=== PATIENT | female | born 1975 | race Hispanic/Latino ===

== ENCOUNTER 2017-09-26 14:05 | Observation (INO) | payer OTHER ==
[2017-09-26 15:44] LABS: Alanine Aminotransferase 13 units/L (7-56); Albumin 3.8 g/dL (3.9-5); BUN/Creatinine Ratio 17; Blood Urea Nitrogen 10 mg/dL (7-17); Calcium 8.9 mg/dL (8.4-10.2); Hemolysis Index 0
[2017-09-26 16:09] LABS: Basophils % (Auto) 0.2 % (0.0-1.8); Eosinophils # (Auto) 0.2 K/mm3 (0.0-0.4); Eosinophils % (Auto) 2.6 % (0.0-4.3); Hematocrit 32.9 % (30.3-42.9); Hemoglobin 10.7 gm/dl (10.1-14.3); Lymphocytes # (Auto) 2.4 K/mm3 (1.2-5.4); Lymphocytes % (Auto) 31.5 % (13.4-35.0); Mean Corpuscular HGB Conc 33 % (30-34); Mean Corpuscular Hemoglobin 26 pg (28-32); Mean Corpuscular Volume 80 fl (79-97); Monocytes # (Auto) 0.6 K/mm3 (0.0-0.8); Monocytes % (Auto) 8.3 % (0.0-7.3); Red Blood Count 4.11 M/mm3 (3.65-5.03)
[2017-09-26 16:28] LABS: Red Cell Distribution Width 24.2 % (13.2-15.2)
[2017-09-26 17:05] LABS: Platelet Count 8 K/mm3 (140-440)
--- NOTE | 2017-09-26 19:44 | Emergency Department Report ---
ED Recheck HPI - General Chief Complaint: Recheck/Abnormal Lab/Rx Stated Complaint: BLOOD PLATELETS ARE HIGH Time Seen by Provider: 09/26/17 18:58 Source: patient Mode of arrival: Ambulatory Limitations: Language Barrier - History of Present Illness Initial Comments: Patient was told to go to the emergency room for evaluation of low platelet count. She denies any bleeding however complained of mild headache. 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 MD Complaint: abnormal lab -: Sudden Initial Visit For: other (thrombocytopenia) Returns Today for: other Context: called for abnorm lab res Associated Symptoms: other (headache) - Related Data Home Medications Medication Instructions Recorded Confirmed Last Taken Darunavir [Prezista] 800 mg PO QDAY 12/31/12 01/31/13 02/06/13 Emtricitabin/Tenofovir [TRUVADA 1 tab PO QDAY 12/31/12 01/31/13 02/06/13 200-300 mg] Ritonavir [Norvir] 100 mg PO QDAY 12/31/12 01/31/13 02/06/13 Methyldopa [Aldomet] 250 mg PO BID 01/09/13 01/31/13 02/06/13 Pnv,Calcium 72/Iron,Carb/Folic 01/09/13 01/31/13 02/06/13 [ Plus Iron Tablet] Previous Rx's Medication Instructions Recorded Last Taken Type Ondansetron [Zofran TAB] 4 mg PO Q6HR PRN #15 tablet 01/01/13 01/08/13 20:00 Rx Doxycycline [Vibramycin CAP] 100 mg PO BID #14 capsule 02/08/13 Unknown Rx Methylergonovine [Methergine] 0.2 mg PO Q8HR #6 tablet 02/08/13 Unknown Rx NIFEdipine XL [Procardia Xl] 60 mg PO Q12HR #60 tablet 11/18/16 Unknown Rx Ritonavir [Norvir] 100 mg PO QDAY #1 tab 11/18/16 Unknown Rx predniSONE [Deltasone] 30 mg PO QDAY #90 tablet 11/18/16 Unknown Rx Allergies Allergy/AdvReac Type Severity Reaction Status Date / Time No Known Allergies Allergy Verified 01/09/13 08:44 ED Review of Systems ROS: Stated complaint: BLOOD PLATELETS ARE HIGH Other details as noted in HPI Comment: All other systems reviewed and negative Constitutional: no symptoms reported ENT: denies: ear pain, dental pain Respiratory: denies: cough, shortness of breath Cardiovascular: denies: chest pain, palpitations Endocrine: no symptoms reported Gastrointestinal: denies: abdominal pain, nausea, vomiting, diarrhea, constipation Genitourinary: denies: urgency, frequency Musculoskeletal: denies: back pain, joint swelling Skin: denies: rash Neurological: denies: headache, numbness Psychiatric: denies: anxiety, depression Hematological/Lymphatic: denies: easy bleeding, easy bruising ED Past Medical Hx - Past Medical History Hx Hypertension: Yes (LAST BP TAKEN 02/05/13) Hx Renal Disease: No Hx Asthma: Yes (last inhaler use 6 months ago) Hx HIV: Yes - Surgical History Hx Appendectomy: Yes - Social History Smoking Status: Never Smoker Substance Use Type: None - Medications Home Medications: Home Medications Medication Instructions Recorded Confirmed Last Taken Type Darunavir [Prezista] 800 mg PO QDAY 12/31/12 01/31/13 02/06/13 History Emtricitabin/Tenofovir [TRUVADA 1 tab PO QDAY 12/31/12 01/31/13 02/06/13 History 200-300 mg] Ritonavir [Norvir] 100 mg PO QDAY 12/31/12 01/31/13 02/06/13 History Ondansetron [Zofran TAB] 4 mg PO Q6HR PRN #15 tablet 01/01/13 01/09/13 01/08/13 20:00 Rx Methyldopa [Aldomet] 250 mg PO BID 01/09/13 01/31/13 02/06/13 History Pnv,Calcium 72/Iron,Carb/Folic 01/09/13 01/31/13 02/06/13 History [ Plus Iron Tablet] Doxycycline [Vibramycin CAP] 100 mg PO BID #14 capsule 02/08/13 Unknown Rx Methylergonovine [Methergine] 0.2 mg PO Q8HR #6 tablet 02/08/13 Unknown Rx NIFEdipine XL [Procardia Xl] 60 mg PO Q12HR #60 tablet 11/18/16 Unknown Rx Ritonavir [Norvir] 100 mg PO QDAY #1 tab 11/18/16 Unknown Rx predniSONE [Deltasone] 30 mg PO QDAY #90 tablet 11/18/16 Unknown Rx ED Physical Exam - General Limitations: Language Barrier General appearance: alert, in no apparent distress - Head Head exam: Present: atraumatic, normocephalic, normal inspection - Eye Eye exam: Present: normal appearance, PERRL, EOMI Pupils: Present: normal accommodation - ENT ENT exam: Present: normal exam, normal orophraynx, mucous membranes moist - Neck Neck exam: Present: normal inspection, full ROM - Respiratory Respiratory exam: Present: normal lung sounds bilaterally. Absent: respiratory distress, wheezes, rhonchi - Cardiovascular Cardiovascular Exam: Present: regular rate, normal rhythm, normal heart sounds - GI/Abdominal GI/Abdominal exam: Present: soft, normal bowel sounds. Absent: distended, tenderness, guarding, rebound - Rectal Rectal exam: Present: deferred - Extremities Exam Extremities exam: Present: normal inspection, full ROM, normal capillary refill - Back Exam Back exam: Present: normal inspection, full ROM - Neurological Exam Neurological exam: Present: alert, oriented X3, CN II-XII intact - Psychiatric Psychiatric exam: Present: normal affect, normal mood. Absent: depressed, anxious - Skin Skin exam: Present: warm, dry, intact, normal color ED Course Vital Signs 09/26/17 09/26/17 09/26/17 14:38 18:30 18:53 Temperature 97.9 F Pulse Rate 91 H 81 Respiratory 16 16 16 Rate Blood Pressure 134/77 Blood Pressure 132/70 [Left] O2 Sat by Pulse 97 99 99 Oximetry - Reevaluation(s) Reevaluation #1: 09/26/17 20:30 I consulted the towel folder oncologist on-call Dr Sosa. Patient will be admitted to the hospitalists for further evaluation and management. ED Recheck MDM - Medical Decision Making Thrombocytopenia Critical care attestation.: If time is entered above; I have spent that time in minutes in the direct care of this critically ill patient, excluding procedure time. ED Disposition Clinical Impression: Thrombocythemia Disposition: OP ADMIT IP TO THIS HOSP Is pt being admited?: Yes Does the pt Need Aspirin: No Condition: Stable Referrals: PRIMARY CARE, [Primary Care Provider] - 3-5 Days Time of Disposition: 20:31
[2017-09-26] MEDS ORDERED: NACL 0.9% 500 ML 500 ML IV ONE (19:48)
[2017-09-26] MEDS ORDERED: DECADRON 20 MG in NACL 0.9% 50 ML IV ONE (20:06)
[2017-09-26 20:56] LABS: INR 0.87 (0.87-1.13)
--- NOTE | 2017-09-26 21:48 | Consultation ---
History of Present Illness - Reason for Consult Consult date: 09/26/17 low plt/anemia. Requesting physician: ELIECER LA - History of Present Illness Thank you for this consult, patient seen, examined, records reviewed, case d/w patient, and with the ER Doc. Patient presented to the ED, with geralized ill feeling. Labe revealed severe low plt, w/o any sign of bleeding. PLT last was 29 ,000, and to day 8,000. She does not speak [place].very poor history.all info from old record. Suspect ITP, secondary to perhaps her HIV/aids.she also has hx of iron def, so she has multiple reason for her low plt.rec include to try steroids as long as no acute infection.If there is any trace of active bleeding , PLT transfusion should be given.CT of the head is also rec, since patient reported head ache.I doubt HIV/aids lymphoma at this time.will follow you. will also check iron level , and adjust accordingly. Medications and Allergies Allergies Allergy/AdvReac Type Severity Reaction Status Date / Time No Known Allergies Allergy Verified 01/09/13 08:44 Home Medications Medication Instructions Recorded Confirmed Last Taken Type Darunavir [Prezista] 800 mg PO QDAY 12/31/12 01/31/13 02/06/13 History Emtricitabin/Tenofovir [TRUVADA 1 tab PO QDAY 12/31/12 01/31/13 02/06/13 History 200-300 mg] Ritonavir [Norvir] 100 mg PO QDAY 12/31/12 01/31/13 02/06/13 History Ondansetron [Zofran TAB] 4 mg PO Q6HR PRN #15 tablet 01/01/13 01/09/13 01/08/13 20:00 Rx Methyldopa [Aldomet] 250 mg PO BID 01/09/13 01/31/13 02/06/13 History Pnv,Calcium 72/Iron,Carb/Folic 01/09/13 01/31/13 02/06/13 History [ Plus Iron Tablet] Doxycycline [Vibramycin CAP] 100 mg PO BID #14 capsule 02/08/13 Unknown Rx Methylergonovine [Methergine] 0.2 mg PO Q8HR #6 tablet 02/08/13 Unknown Rx NIFEdipine XL [Procardia Xl] 60 mg PO Q12HR #60 tablet 11/18/16 Unknown Rx Ritonavir [Norvir] 100 mg PO QDAY #1 tab 11/18/16 Unknown Rx predniSONE [Deltasone] 30 mg PO QDAY #90 tablet 11/18/16 Unknown Rx Review of Systems Breasts: deferred Exam - Constitutional Vitals: Temp Pulse Resp BP Pulse Ox 98.1 F 85 18 140/71 98 09/26/17 19:05 09/26/17 19:05 09/26/17 19:05 09/26/17 19:05 09/26/17 19:05 General appearance: Present: no acute distress, well-nourished - EENT Eyes: Present: PERRL ENT: hearing intact, clear oral mucosa - Neck Neck: Present: supple, normal ROM - Respiratory Respiratory effort: normal Respiratory: bilateral: CTA - Cardiovascular Heart Sounds: Present: S1 & S2. Absent: rub, click - Extremities Extremities: pulses symmetrical, No edema Peripheral Pulses: within normal limits - Abdominal General gastrointestinal: Present: soft, non-tender, non-distended, normal bowel sounds Female genitourinary: Present: deferred - Rectal Rectal Exam: deferred - Integumentary Integumentary: Present: clear, warm, dry - Musculoskeletal Musculoskeletal: gait normal, strength equal bilaterally - Psychiatric Psychiatric: appropriate mood/affect, intact judgment & insight - Neurologic Neurologic: CNII-XII intact, moves all extremities Results - Labs CBC & Chem 7: 09/26/17 15:55 09/26/17 14:48 Labs: Abnormal lab results 09/26/17 09/26/17 Range/Units 14:48 15:55 MCH 26 L (28-32) pg RDW 24.2 H (13.2-15.2) % Plt Count 8 L* (140-440) K/mm3 [place] % (Auto) 8.3 H (0.0-7.3) % Sodium 136 L (137-145) mmol/L Chloride 97.7 L (98-107) mmol/L Creatinine 0.6 L (0.7-1.2) mg/dL Glucose 112 H (65-100) mg/dL Total Protein 8.3 H (6.3-8.2) g/dL Albumin 3.8 L (3.9-5) g/dL Assessment and Plan - Patient Problems (1) HIV (human immunodeficiency virus infection) Current Visit: No Status: Acute Plan to address problem: supportive. (2) Thrombocytopenia Current Visit: Yes Status: Acute Plan to address problem: see notes. (3) HIV (human immunodeficiency virus infection) Current Visit: Yes Status: Acute Plan to address problem: see notes. (4) AIDS Current Visit: Yes Status: Acute Plan to address problem: see notes/orders. (5) Anemia Current Visit: Yes Status: Acute Plan to address problem: see notes/orders.
--- NOTE | 2017-09-26 21:49 | Cat Scan Report ---
FINAL REPORT PROCEDURE: CT HEAD/BRAIN WO CON TECHNIQUE: Computerized tomography of the head was performed without contrast material. HISTORY: Headache COMPARISON: September 15, 2016 FINDINGS: Skull and scalp: Normal. Paranasal sinuses: Normal. Ventricles and subarachnoid spaces: Normal. Cerebrum: No evidence of hemorrhage, acute infarction or mass . Cerebellum and brainstem: No evidence of hemorrhage, acute infarction or mass. Vasculature: Normal. Comments: None. IMPRESSION: Normal CT brain Sinusitis.
[2017-09-26 23:08] LABS: Iron 43 ug/dL (37-170)
[2017-09-26 23:09] LABS: Total Iron Binding Capacity 428 mcg/dL (250-450)
[2017-09-27] MEDS ORDERED: TYLENOL PO PRN (03:17)
[2017-09-27] MEDS ORDERED: ZOFRAN IV PRN (03:17)
[2017-09-27] MEDS ORDERED: SODIUM CHLORIDE FLUSH SYRINGE 10 ML IV PRN (03:17)
[2017-09-27] MEDS ORDERED: MORPHINE IV PRN (03:17)
--- NOTE | 2017-09-27 03:20 | History and Physical Report ---
History of Present Illness Date of examination: 09/27/17 Date of admission: 09/27/17 Chief complaint: Low plt History of present illness: 41 YO Female with AIDS, Asthma, Obesity who was sent from outpatient clinic for low platelet counts. On arrival the patient was noted to have a PLT level of 8, 000 WITH NO NOTED BLEED. She complained of headache but no associated blurry vision. she denies any change in medication recently and reports compliance to her chronic steroids. She has been seen at the facility for the same a year ago and at the time work up was negative with recommendation to follow with Hematology outpatient. She is also followed by ID FOR HIV and compliant with med. Past History Past Medical History: HIV/AIDS, hypertension, hyperlipidemia Past Surgical History: No surgical history, Other Social history: lives with family, full code Family history: no significant family history Medications and Allergies Allergies Allergy/AdvReac Type Severity Reaction Status Date / Time No Known Allergies Allergy Verified 01/09/13 08:44 Home Medications Medication Instructions Recorded Confirmed Last Taken Type Darunavir [Prezista] 800 mg PO QDAY 12/31/12 09/27/17 02/06/13 History Emtricitabin/Tenofovir [TRUVADA 1 tab PO QDAY 12/31/12 09/27/17 02/06/13 History 200-300 mg] Ritonavir [Norvir] 100 mg PO QDAY 12/31/12 09/27/17 02/06/13 History Ondansetron [Zofran TAB] 4 mg PO Q6HR PRN #15 tablet 01/01/13 09/27/17 01/08/13 20:00 Rx Methyldopa [Aldomet] 250 mg PO BID 01/09/13 09/27/17 02/06/13 History Pnv,Calcium 72/Iron,Carb/Folic 1 tab PO DAILY 01/09/13 09/27/17 02/06/13 History [ Plus Iron Tablet] Doxycycline [Vibramycin CAP] 100 mg PO BID #14 capsule 02/08/13 09/27/17 Unknown Rx Methylergonovine [Methergine] 0.2 mg PO Q8HR #6 tablet 02/08/13 09/27/17 Unknown Rx Ritonavir [Norvir] 100 mg PO QDAY #1 tab 11/18/16 09/27/17 Unknown Rx predniSONE [Deltasone] 30 mg PO QDAY #90 tablet 11/18/16 09/27/17 Unknown Rx Labetalol [Normodyne TAB] 100 mg PO BID 09/27/17 09/27/17 09/27/17 09:00 History Active Meds: Active Medications Methylprednisolone Sodium Succinate (Solu-Medrol) 40 mg IV Q8HR [facility] Last Admin: 09/26/17 22:55 Dose: 40 mg Review of Systems ROS unobtainable: due to mental status Constitutional: fatigue, weakness Exam - Constitutional Vitals: Temp Pulse Resp BP Pulse Ox 98.1 F 85 18 127/71 98 09/26/17 19:05 09/26/17 19:05 09/26/17 19:05 09/27/17 00:03 09/27/17 00:03 General appearance: Present: no acute distress, well-nourished - EENT Eyes: Present: PERRL ENT: clear oral mucosa, dentition normal - Neck Neck: Present: supple, normal ROM - Respiratory Respiratory effort: normal Respiratory: bilateral: CTA - Cardiovascular Rhythm: regular Heart Sounds: Present: S1 & S2 - Extremities Extremities: no ischemia, pulses intact, pulses symmetrical, No edema, normal temperature, Full ROM Peripheral Pulses: within normal limits - Abdominal General gastrointestinal: Present: soft, non-tender, distended, normal bowel sounds - Integumentary Integumentary: Present: clear, warm, dry - Musculoskeletal Musculoskeletal: strength equal bilaterally - Psychiatric Psychiatric: appropriate mood/affect, cooperative - Neurologic Neurologic: CNII-XII intact, moves all extremities - Allied Health Allied health notes reviewed: nursing Results - Labs CBC & Chem 7: 09/27/17 09:36 09/26/17 14:48 Labs: Laboratory Last Values WBC 7.5 K/mm3 (4.5-11.0) 09/26/17 15:55 RBC 4.11 M/mm3 (3.65-5.03) 09/26/17 15:55 Hgb 10.7 gm/dl (10.1-14.3) 09/26/17 15:55 Hct 32.9 % (30.3-42.9) 09/26/17 15:55 MCV 80 fl (79-97) 09/26/17 15:55 MCH 26 pg (28-32) L 09/26/17 15:55 MCHC 33 % (30-34) 09/26/17 15:55 RDW 24.2 % (13.2-15.2) H 09/26/17 15:55 Plt Count 8 K/mm3 (140-440) L* 09/26/17 15:55 Lymph % (Auto) 31.5 % (13.4-35.0) 09/26/17 15:55 [place] % (Auto) 8.3 % (0.0-7.3) H 09/26/17 15:55 Eos % (Auto) 2.6 % (0.0-4.3) 09/26/17 15:55 Baso % (Auto) 0.2 % (0.0-1.8) 09/26/17 15:55 Lymph # 2.4 K/mm3 (1.2-5.4) 09/26/17 15:55 [place] # 0.6 K/mm3 (0.0-0.8) 09/26/17 15:55 Eos # 0.2 K/mm3 (0.0-0.4) 09/26/17 15:55 Baso # 0.0 K/mm3 (0.0-0.1) 09/26/17 15:55 Seg Neutrophils % 57.4 % (40.0-70.0) 09/26/17 15:55 Seg Neutrophils # 4.3 K/mm3 (1.8-7.7) 09/26/17 15:55 PT 12.3 Sec. (12.2-14.9) 09/26/17 20:16 INR 0.87 (0.87-1.13) 09/26/17 20:16 APTT 27.0 Sec. (24.2-36.6) 09/26/17 20:16 Sodium 136 mmol/L (137-145) L 09/26/17 14:48 Potassium 3.9 mmol/L (3.6-5.0) 09/26/17 14:48 Chloride 97.7 mmol/L (98-107) L 09/26/17 14:48 Carbon Dioxide 25 mmol/L (22-30) 09/26/17 14:48 Anion Gap 17 mmol/L 09/26/17 14:48 BUN 10 mg/dL (7-17) 09/26/17 14:48 Creatinine 0.6 mg/dL (0.7-1.2) L 09/26/17 14:48 Estimated GFR > 60 ml/min 09/26/17 14:48 BUN/Creatinine Ratio 17 % 09/26/17 14:48 Glucose 112 mg/dL (65-100) H 09/26/17 14:48 Calcium 8.9 mg/dL (8.4-10.2) 09/26/17 14:48 Iron 43 ug/dL (37-170) 09/26/17 21:57 TIBC 428 mcg/dL (250-450) 09/26/17 21:57 Ferritin 37.8 ng/mL (13.0-400.0) 09/26/17 21:57 Total Bilirubin 0.20 mg/dL (0.1-1.2) 09/26/17 14:48 AST 21 units/L (5-40) 09/26/17 14:48 ALT 13 units/L (7-56) 09/26/17 14:48 Alkaline Phosphatase 65 units/L (35-129) 09/26/17 14:48 Lactate Dehydrogenase 241 units/L (91-180) H 09/26/17 21:55 Total Protein 8.3 g/dL (6.3-8.2) H 09/26/17 14:48 Albumin 3.8 g/dL (3.9-5) L 09/26/17 14:48 Albumin/Globulin Ratio 0.8 % 09/26/17 14:48 Blood Type O POSITIVE 09/26/17 14:48 Antibody Screen Negative 09/26/17 14:48 - Imaging and Cardiology CT Scan - head: image reviewed (sinusities) Assessment and Plan Assessment and plan: 41 YO Female with AIDS, Asthma, Obesity who was sent from outpatient clinic for low platelet counts. On arrival the aptient was noted to have a PLT level of 8, 000 WITH NO NOTED BLEED. She complained of headache but no associated blurry vision. she denies any change in medication recently and reports compliance to her chronic steroids. she has been seen at the facility for the same a year ago and at the time work up was negative with recommendation to follow with Hematology outpatient. Severe thrombocytopenia Immune thrombocytopenia, ITP HIV/AIDS Iron deficiency anemia IUP~ Plan * Admit to [facility] * Platelet transfusion order * Hematology consult already done * Check beta HCG * ID consult for med management considering * ABDOMINAL Ultrasound, * [employer] OPERATOR consult * Resume home meds * CT head to eval for bleed- already done by the time I came. * compliance reinforced * DVT prophy with SCD * Plan of care discussed with patient extensively Advance Directives: Yes Plan of care discussed with patient/family: Yes
[2017-09-27] MEDS ORDERED: METHERGINE PO SCH (06:00)
[2017-09-27 06:02] LABS: Basophils % (Auto) 0.1 % (0.0-1.8); Eosinophils % (Auto) 0.1 % (0.0-4.3); Hematocrit 33.2 % (30.3-42.9); Lymphocytes # (Auto) 1.4 K/mm3 (1.2-5.4); Lymphocytes % (Auto) 18.4 % (13.4-35.0); Mean Corpuscular HGB Conc 33 % (30-34); Mean Corpuscular Hemoglobin 28 pg (28-32); Mean Corpuscular Volume 84 fl (79-97); Monocytes # (Auto) 0.2 K/mm3 (0.0-0.8); Monocytes % (Auto) 2.1 % (0.0-7.3); Red Blood Count 3.95 M/mm3 (3.65-5.03)
[2017-09-27 06:09] LABS: Red Cell Distribution Width 23.9 % (13.2-15.2)
[2017-09-27 06:12] LABS: Platelet Count 7 K/mm3 (140-440)
[2017-09-27] MEDS ORDERED: NON-FORMULARY (Emtricitabin/Tenofovir [Truvada 200-300 Mg] 1 TAB) PO SCH (10:00)
[2017-09-27] MEDS ORDERED: VIREAD PO SCH (10:00)
[2017-09-27] MEDS ORDERED: EMTRIVA PO SCH (10:00)
[2017-09-27] MEDS ORDERED: NORVIR PO SCH (10:00)
[2017-09-27] MEDS ORDERED: PREZISTA PO SCH ×2 (10:00→12:00)
[2017-09-27] MEDS ORDERED: PROCARDIA XL PO SCH (10:00)
[2017-09-27 10:03] LABS: Basophils % (Auto) 0.4 % (0.0-1.8); Eosinophils % (Auto) 0.3 % (0.0-4.3); Hematocrit 33.8 % (30.3-42.9); Hemoglobin 11.4 gm/dl (10.1-14.3); Lymphocytes # (Auto) 1.5 K/mm3 (1.2-5.4); Lymphocytes % (Auto) 15.9 % (13.4-35.0); Mean Corpuscular HGB Conc 34 % (30-34); Mean Corpuscular Hemoglobin 28 pg (28-32); Mean Corpuscular Volume 82 fl (79-97); Monocytes # (Auto) 0.1 K/mm3 (0.0-0.8); Monocytes % (Auto) 1.4 % (0.0-7.3); Red Blood Count 4.14 M/mm3 (3.65-5.03); Red Cell Distribution Width 23.5 % (13.2-15.2)
[2017-09-27 10:04] LABS: Platelet Count 24 K/mm3 (140-440)
--- NOTE | 2017-09-27 11:12 | Consultation ---
History of Present Illness - Reason for Consult Consult date: 09/27/17 HIV, Requesting physician: HILTON PASTRANA - History of Present Illness 42 y/o female with history of severe asthma, previous cryptosporidiosis, previous immune thrombocytopenia (in Nov 2016 seen by hematology, she received IV steroids and platelets counts improved), HIV for several years, follows with Dr Tello, stopped ART 4 weeks ago when she found out she was (she was on prezista, descovy and tivicay); admitted on 09/26/17 from HIV outpatient clinic for low platelet counts. She reports she has been feeling weak and low grade subjective fever last 4 weeks. She has a mild dry cough and mild diffuse headache. Denies any sick contact. Per Dr Tello she has been non complaint in the past. Denies N/V/D, any bleeding. In the ED, temp 97.9, HR 91, R 16, BP 134/77. WBC 7.5. Hg 10.7. Plat 8. Creat 0.6. LDH 241. HCG 22K. CT head showed sinusitis. US showed single viable IU 6 w, 2 d. Microbiology: none Current Antimicrobials: none Previous Antimicrobials: Past History Past Medical History: HIV/AIDS, hypertension, hyperlipidemia Past Surgical History: No surgical history, Other Social history: lives with family, full code Family history: no significant family history Medications and Allergies Allergies Allergy/AdvReac Type Severity Reaction Status Date / Time No Known Allergies Allergy Verified 01/09/13 08:44 Home Medications Medication Instructions Recorded Confirmed Last Taken Type Darunavir [Prezista] 800 mg PO QDAY 12/31/12 09/27/17 02/06/13 History Emtricitabin/Tenofovir [TRUVADA 1 tab PO QDAY 12/31/12 09/27/17 02/06/13 History 200-300 mg] Ritonavir [Norvir] 100 mg PO QDAY 12/31/12 09/27/17 02/06/13 History Ondansetron [Zofran TAB] 4 mg PO Q6HR PRN #15 tablet 01/01/13 09/27/17 01/08/13 20:00 Rx Methyldopa [Aldomet] 250 mg PO BID 01/09/13 09/27/17 02/06/13 History Pnv,Calcium 72/Iron,Carb/Folic 1 tab PO DAILY 01/09/13 09/27/17 02/06/13 History [ Plus Iron Tablet] Doxycycline [Vibramycin CAP] 100 mg PO BID #14 capsule 02/08/13 09/27/17 Unknown Rx Methylergonovine [Methergine] 0.2 mg PO Q8HR #6 tablet 02/08/13 09/27/17 Unknown Rx Ritonavir [Norvir] 100 mg PO QDAY #1 tab 11/18/16 09/27/17 Unknown Rx predniSONE [Deltasone] 30 mg PO QDAY #90 tablet 11/18/16 09/27/17 Unknown Rx Labetalol [Normodyne TAB] 100 mg PO BID 09/27/17 09/27/17 09/27/17 09:00 History Active Meds: Active Medications Acetaminophen (Tylenol) 650 mg PO Q4H PRN PRN Reason: Pain MILD(1-3)/Fever >100.5/REBOLLAR Darunavir (Prezista) 800 mg PO QDAY [facility] Famotidine (Pepcid) 20 mg PO BID [facility] Methyldopa (Aldomet) 250 mg PO BID ON LICENSE OF [facility] Methylprednisolone Sodium Succinate (Solu-Medrol) 40 mg IV Q8HR ON LICENSE OF [facility] Last Admin: 09/27/17 05:57 Dose: 40 mg Morphine Sulfate (Morphine) 2 mg IV Q4H PRN PRN Reason: Pain, Moderate (4-6) Ondansetron HCl (Zofran) 4 mg IV Q8H PRN PRN Reason: Nausea And Vomiting Raltegravir (Isentress) 400 mg PO BID ON LICENSE OF [facility] Sodium Chloride (Sodium Chloride Flush Syringe 10 Ml) 10 ml IV BID [facility] Sodium Chloride (Sodium Chloride Flush Syringe 10 Ml) 10 ml IV PRN PRN PRN Reason: LINE FLUSH Review of Systems ROS unobtainable: due to mental status All systems: negative (as per HPI) Physical Examination - Physical Exam Narrative exam: General appearance: Alert in NAD, conversant Eyes: anicteric sclerae, moist conjunctivae; no lid-lag; PERRLA HENT: Atraumatic; oropharynx clear Neck: Trachea midline; supple, no thyromegaly or lymphadenopathy Lungs: CTA, with normal respiratory effort and no intercostal retractions CV: RRR, no murmurs Abdomen: Soft, non-tender; no masses or hepatosplenomegaly Extremities: No peripheral edema or extremity lymphadenopathy Skin: old skin nodular rash Psych: Appropriate affect, alert and oriented to person, place and time. Neuro: alert and oriented x 3. Moving all extermities Lines: No CVL / PICC - Constitutional Vitals: Vital Signs Temp Pulse Resp BP Pulse Ox 98.1 F 92 H 20 142/69 96 09/27/17 08:12 09/27/17 08:12 09/27/17 08:12 09/27/17 08:12 09/27/17 08:12 Temperature -Last 24 Hours Temperature 98.1 F Temperature 98.8 F Temperature 98.8 F Temperature 98.8 F Temperature 98.3 F Temperature 98.3 F Temperature 98.0 F Temperature 98.1 F Temperature 97.9 F Results - Labs CBC & Chem 7: 09/27/17 09:36 09/26/17 14:48 Labs: Abnormal lab results 09/26/17 09/26/17 09/26/17 Range/Units 14:48 15:55 21:55 MCH 26 L (28-32) pg RDW 24.2 H (13.2-15.2) % Plt Count 8 L* (140-440) K/mm3 [place] % (Auto) 8.3 H (0.0-7.3) % Seg Neutrophils % (40.0-70.0) % Sodium 136 L (137-145) mmol/L Chloride 97.7 L (98-107) mmol/L Creatinine 0.6 L (0.7-1.2) mg/dL Glucose 112 H (65-100) mg/dL Lactate Dehydrogenase 241 H (91-180) units/L Total Protein 8.3 H (6.3-8.2) g/dL Albumin 3.8 L (3.9-5) g/dL HCG, Quant (0-4) mIU/mL 09/27/17 09/27/17 09/27/17 Range/Units 05:27 05:27 09:36 MCH (28-32) pg RDW 23.9 H 23.5 H (13.2-15.2) % Plt Count 7 L* 24 L D (140-440) K/mm3 [place] % (Auto) (0.0-7.3) % Seg Neutrophils % 79.3 H 82.0 H (40.0-70.0) % Sodium (137-145) mmol/L Chloride (98-107) mmol/L Creatinine (0.7-1.2) mg/dL Glucose (65-100) mg/dL Lactate Dehydrogenase (91-180) units/L Total Protein (6.3-8.2) g/dL Albumin (3.9-5) g/dL HCG, Quant 34353 H (0-4) mIU/mL Assessment and Plan Assessment: 1) HIV disease: non compliant -follows with Dr Tello -stopped ART 4 weeks ago when she found out she was (she was on prezista, descovy and tivicay) -last ND4=502, KZ=042 on 11/16/16 2) - 6 weeks 2 days 3) Severe thrombocytopenia with previous immune thrombocytopenia (in Nov 2016 seen by hematology, she received IV steroids and platelets counts improved) 4) History of severe asthma 5) Previous cryptosporidiosis 6) recent fever and dry cough ? Plan: -start truvada 1 tab qday, prezista 600 mg qday, ritonavir 100 mg bid and raltegravir 400 mg bid -check CD4/VL/genotype -Hem consultation -check RPR, viral hepatitis -CXR -blood cx -cryptococcal serum antigen Thank you for your consultation, will follow up with you. Reina Pathak MD Infectious Diseases Specialist [facility] ([facility] M [phone] O [phone]
--- NOTE | 2017-09-27 11:44 | Ultrasound Report ---
ULTRASOUND OB LESS THAN 14 WEEKS FETUS History: Confirm intrauterine and EGA. Technique: Transabdominal ultrasound. Findings: The uterus measures 9.0 x 6.3 x 7.9 cm. An intrauterine gestational sac containing a small pole and yolk sac is identified. heart rate measures 119 beats per minute. Section-rump length measures 5.4 mm which correlates with a 6 week 2 day . Estimated due date is 05/21/18. No subchorionic hemorrhage is identified. The ovaries are not visualized secondary to overlying bowel gas. No pelvic cyst, mass or fluid collection is detected. IMPRESSION: Viable single intrauterine as described. No acute abnormality is detected on transabdominal imaging. The ovaries are obscured.
[2017-09-27] MEDS: ISENTRESS PO SCH ×2 (13:27→21:37)
[2017-09-27] MEDS: SODIUM CHLORIDE FLUSH SYRINGE 10 ML IV SCH (13:31)
[2017-09-27] MEDS: PEPCID PO SCH ×2 (13:34→21:37)
[2017-09-27] MEDS: ALDOMET PO SCH ×2 (14:21→21:36)
[2017-09-27] MEDS ORDERED: EMTRIVA 200 MG, VIREAD 300 MG PO SCH (15:00)
--- NOTE | 2017-09-27 17:13 | Consultation ---
History of Present Illness Consult date: 09/27/17 Reason for consult: other (thrombocytopenia with an intrauterine ) History of present illness: History obtained through the language line. Interpreters name Melinda #[id number] This is a 42-year-old female now 4 para 05/12/2001, her LMP was 2017. She is HIV positive. She presented to the ED from her clinic for evaluation of severe thrombocytopenia. She was found to have a positive test. Ultrasound revealed an intrauterine of 6 weeks and [address] her estimated date of delivery 05/21/2018. She states she found out she was last month stopped all of her medications at that time. Today she denies vaginal bleeding or uterine cramping or any obstetrical problems. Past History Past Medical History: asthma, hypertension, other (immune thrombocytopenia) Past Surgical History: appendectomy, D&C, other (LEEP ) [employer] History: abnormal PAP smear (patient required loop electrosurgical excision procedure august 2016. She states she had a Pap August 2017 however she does not know the results of that test.), HIV - Obstetrical History Expected Date of Delivery: 05/21/18 Actual Gestation: 6 Week(s) 2 Day(s) : 4 Para: 2 Hx # Term Pregnancies: 2 Number of Pregnancies: 0 Spontaneous Abortions: 1 Induced : 0 Number of Living Children: 2 #1 year: 1,994 Method of Delivery: Vaginal #2 year: 1,998 Method of Delivery: Vaginal #3 year: 2,013 (15 weeks SAB with D&C) Medications and Allergies Allergies Allergy/AdvReac Type Severity Reaction Status Date / Time No Known Allergies Allergy Verified 01/09/13 08:44 Home Medications Medication Instructions Recorded Confirmed Last Taken Type Darunavir [Prezista] 800 mg PO QDAY 12/31/12 09/27/17 02/06/13 History Emtricitabin/Tenofovir [TRUVADA 1 tab PO QDAY 12/31/12 09/27/17 02/06/13 History 200-300 mg] Ritonavir [Norvir] 100 mg PO QDAY 12/31/12 09/27/17 02/06/13 History Ondansetron [Zofran TAB] 4 mg PO Q6HR PRN #15 tablet 09/09/27/17 01/08/13 20:00 Rx Methyldopa [Aldomet] 250 mg PO BID 01/09/13 09/27/17 02/06/13 History Pnv,Calcium 72/Iron,Carb/Folic 1 tab PO DAILY 01/09/13 09/27/17 02/06/13 History [ Plus Iron Tablet] Doxycycline [Vibramycin CAP] 100 mg PO BID #14 capsule 02/08/13 09/27/17 Unknown Rx Methylergonovine [Methergine] 0.2 mg PO Q8HR #6 tablet 02/08/13 09/27/17 Unknown Rx Ritonavir [Norvir] 100 mg PO QDAY #1 tab 11/18/16 09/27/17 Unknown Rx predniSONE [Deltasone] 30 mg PO QDAY #90 tablet 11/18/16 09/27/17 Unknown Rx Labetalol [Normodyne TAB] 100 mg PO BID 09/27/17 09/27/17 09/27/17 09:00 History Vit Calc,Iron,Folic 1 each PO DAILY #30 tablet 09/27/17 Unknown Rx [ Vitamins] Active Meds: Active Medications Acetaminophen (Tylenol) 650 mg PO Q4H PRN PRN Reason: Pain MILD(1-3)/Fever >100.5/REBOLLAR Darunavir (Prezista) 600 mg PO BID [facility] Emtricitabine (Emtriva) 200 mg PO QDAY [facility] Famotidine (Pepcid) 20 mg PO BID [facility] Last Admin: 09/27/17 13:34 Dose: 20 mg Methyldopa (Aldomet) 250 mg PO BID [facility] Last Admin: 09/27/17 14:21 Dose: 250 mg Methylprednisolone Sodium Succinate (Solu-Medrol) 40 mg IV Q8HR [facility] Last Admin: 09/27/17 13:29 Dose: 40 mg Morphine Sulfate (Morphine) 2 mg IV Q4H PRN PRN Reason: Pain, Moderate (4-6) Ondansetron HCl (Zofran) 4 mg IV Q8H PRN PRN Reason: Nausea And Vomiting Raltegravir (Isentress) 400 mg PO BID [facility] Last Admin: 09/27/17 13:27 Dose: 400 mg Ritonavir (Norvir) 100 mg PO BID [facility] Sodium Chloride (Sodium Chloride Flush Syringe 10 Ml) 10 ml IV BID [facility] Last Admin: 09/27/17 13:31 Dose: 10 ml Sodium Chloride (Sodium Chloride Flush Syringe 10 Ml) 10 ml IV PRN PRN PRN Reason: LINE FLUSH Tenofovir Disoproxil Fumarate (Viread) 300 mg PO QDAY [facility] Review of Systems All systems: negative - Vital Signs Vital signs: Vital Signs Temp Pulse Resp BP Pulse Ox 97.9 F 91 H 16 134/77 97 09/26/17 14:38 09/26/17 14:38 09/26/17 14:38 09/26/17 14:38 09/26/17 14:38 Temp Pulse Resp BP Pulse Ox 97.5 F L 96 H 22 154/78 97 09/27/17 15:52 09/27/17 15:52 09/27/17 15:52 09/27/17 15:52 09/27/17 15:52 Results Result Diagrams: 09/27/17 09:36 09/26/17 14:48 Abnormal lab results 09/26/17 09/27/17 09/27/17 Range/Units 21:55 05:27 05:27 RDW 23.9 H (13.2-15.2) % Plt Count 7 L* (140-440) K/mm3 Seg Neutrophils % 79.3 H (40.0-70.0) % Lactate Dehydrogenase 241 H (91-180) units/L HCG, Quant 42363 H (0-4) mIU/mL 09/27/17 Range/Units 09:36 RDW 23.5 H (13.2-15.2) % Plt Count 24 L D (140-440) K/mm3 Seg Neutrophils % 82.0 H (40.0-70.0) % Lactate Dehydrogenase (91-180) units/L HCG, Quant (0-4) mIU/mL All other labs normal. Ultrasound: report reviewed, image reviewed Assessment and Plan Patient is a poor historian. Most history is obtained from previous visits here at [facility]. - Patient Problems (1) Current Visit: Yes Status: Acute Qualifiers: Weeks of gestation: less than 8 weeks Qualified Code(s): Z3A.01 - Less than 8 weeks gestation of Plan to address problem: 1. No obstetrical complaints at this time 2. Patient states she plans to deliver here at [facility] 3. She was informed she needs to establish her obstetric care immediately upon discharge with the provider in this area. It was emphasized to her with her multiple medical problems specifically HIV, advanced maternal age, asthma, thrombocytopenia, hypertension, and morbid obesity, she is high risk. Importance of HIV protocol for treatment and delivery of infant was emphasized , she was informed this is very important that she receives medication 3 hours prior to delivery to decrease the chances that this baby will require HIV. 4. She was informed she may continue seeing Dr. Tello who is her infection disease provider. She was also informed in this she will also see 2 additional providers, a general landscaping crew leader as well as a critical care clinical nurse specialist who will manage her hypertension. 5. A prescription for vitamins has been sent to the [facility] (2) HIV (human immunodeficiency virus infection) Current Visit: No Status: Chronic Plan to address problem: Dr. Peraza's note was reviewed, anti-retrovirals noted, benefits of these antiretrovirals outweigh the risk for harm. However patient does need to be registered with the antiretrovirals registry. (3) Thrombocytopenia Current Visit: Yes Status: Chronic Plan to address problem: Please use caution with Solu-Medrol especially in the first trimester as well as with long-term use there is potential risk of teratogen density basal antral studies as well as increased risk for low weight and premature . (4) Accelerated hypertension Current Visit: No Status: Chronic Plan to address problem: 1. Recommend changing patient to either labetalol if not contraindicated for asthma or Procardia to better control blood pressures (5) Asthma Current Visit: Yes Status: Chronic (6) AMA (advanced maternal age) multigravida 35+ Current Visit: Yes Status: Chronic Qualifiers: Trimester: first trimester Qualified Code(s): O09.521 - Supervision of elderly multigravida, first trimester (7) Morbid obesity Current Visit: Yes Status: Chronic
[2017-09-27] MEDS: EMTRIVA PO SCH (18:53)
[2017-09-27] MEDS: NORVIR PO SCH ×2 (18:53→21:37)
[2017-09-27] MEDS: VIREAD PO SCH (18:53)
--- NOTE | 2017-09-27 21:25 | Progress Note ---
Assessment and Plan - Patient Problems (1) HIV (human immunodeficiency virus infection) Current Visit: No Status: Chronic Plan to address problem: supportive. (2) Thrombocytopenia Current Visit: Yes Status: Chronic Plan to address problem: see notes. (3) HIV (human immunodeficiency virus infection) Current Visit: Yes Status: Acute Plan to address problem: see notes. (4) AIDS Current Visit: Yes Status: Acute Plan to address problem: see notes/orders. (5) Anemia Current Visit: Yes Status: Acute Plan to address problem: see notes/orders. Subjective Date of service: 09/27/17 Interval history: patient seen, resting in bed, records reviewed, including US/beta hcg elevated.plt slowly increasing.continue with current management. Objective - Constitutional Vitals: Vital Signs - 12hr 09/27/17 15:52 Temperature 97.5 F L Pulse Rate 96 H Respiratory 22 Rate Blood Pressure 154/78 O2 Sat by Pulse 97 Oximetry General appearance: Present: no acute distress, well-nourished - EENT Eyes: PERRL, EOM intact ENT: hearing intact, clear oral mucosa Ears: bilateral: normal - Neck Neck: supple, normal ROM - Respiratory Respiratory effort: normal Respiratory: bilateral: CTA - Breasts Breasts: deferred - Cardiovascular Rhythm: regular Heart Sounds: Present: S1 & S2. Absent: gallop, rub Extremities: pulses intact, No edema, normal color, Full ROM - Gastrointestinal General gastrointestinal: Present: soft, non-tender, non-distended, normal bowel sounds - Genitourinary Female genitourinary: deferred - Integumentary Integumentary: clear, warm, dry - Musculoskeletal Musculoskeletal: 1, strength equal bilaterally - Neurologic Neurologic: moves all extremities - Psychiatric Psychiatric: memory intact, appropriate mood/affect, intact judgment & insight - Labs CBC & Chem 7: 09/27/17 09:36 09/26/17 14:48 Labs: Abnormal lab results 09/26/17 09/27/17 09/27/17 Range/Units 21:55 05:27 05:27 RDW 23.9 H (13.2-15.2) % Plt Count 7 L* (140-440) K/mm3 Seg Neutrophils % 79.3 H (40.0-70.0) % Lactate Dehydrogenase 241 H (91-180) units/L HCG, Quant 17736 H (0-4) mIU/mL 09/27/17 Range/Units 09:36 RDW 23.5 H (13.2-15.2) % Plt Count 24 L D (140-440) K/mm3 Seg Neutrophils % 82.0 H (40.0-70.0) % Lactate Dehydrogenase (91-180) units/L HCG, Quant (0-4) mIU/mL
[2017-09-27] MEDS: PREZISTA PO SCH (21:36)
[2017-09-28] MEDS: SODIUM CHLORIDE FLUSH SYRINGE 10 ML IV SCH ×3 (08:37→22:31)
[2017-09-28 09:14] LABS: Hematocrit 32.4 % (30.3-42.9); Hemoglobin 10.6 gm/dl (10.1-14.3); Lymphocytes # (Auto) 1.5 K/mm3 (1.2-5.4); Lymphocytes % (Auto) 9.7 % (13.4-35.0); Mean Corpuscular HGB Conc 33 % (30-34); Mean Corpuscular Hemoglobin 27 pg (28-32); Mean Corpuscular Volume 82 fl (79-97); Monocytes # (Auto) 0.4 K/mm3 (0.0-0.8); Monocytes % (Auto) 2.9 % (0.0-7.3); Platelet Count 50 K/mm3 (140-440); Red Blood Count 3.98 M/mm3 (3.65-5.03); Red Cell Distribution Width 23.9 % (13.2-15.2)
[2017-09-28] MEDS: ALDOMET PO SCH ×2 (10:19→22:21)
[2017-09-28] MEDS: PREZISTA PO SCH ×2 (10:20→22:21)
[2017-09-28] MEDS: EMTRIVA PO SCH (10:20)
[2017-09-28] MEDS: ISENTRESS PO SCH ×2 (10:21→22:21)
[2017-09-28] MEDS: NORVIR PO SCH ×2 (10:21→22:22)
[2017-09-28] MEDS: VIREAD PO SCH (10:22)
[2017-09-28] MEDS: PEPCID PO SCH ×2 (10:23→22:21)
--- NOTE | 2017-09-28 14:47 | Consultation ---
History of Present Illness Consult date: 09/28/17 Reason for consult: early problem History of present illness: CHART REVIEW Past History Past Medical History: asthma, hypertension, other (immune thrombocytopenia) Past Surgical History: appendectomy, D&C, other (LEEP ) OFFICE ASST History: abnormal PAP smear (patient required loop electrosurgical excision procedure august 2016. She states she had a Pap August 2017 however she does not know the results of that test.), HIV - Obstetrical History : 4 #1 year: Method of Delivery: Vaginal #2 year: Method of Delivery: Vaginal #3 year: 2,013 (15 weeks SAB with D&C) Medications and Allergies Allergies Allergy/AdvReac Type Severity Reaction Status Date / Time No Known Allergies Allergy Verified 01/09/13 08:44 Home Medications Medication Instructions Recorded Confirmed Last Taken Type Darunavir [Prezista] 800 mg PO QDAY 12/31/12 09/27/17 02/06/13 History Emtricitabin/Tenofovir [TRUVADA 1 tab PO QDAY 12/31/12 09/27/17 02/06/13 History 200-300 mg] Ritonavir [Norvir] 100 mg PO QDAY 12/31/12 09/27/17 02/06/13 History Ondansetron [Zofran TAB] 4 mg PO Q6HR PRN #15 tablet 01/01/13 09/27/17 01/08/13 20:00 Rx Methyldopa [Aldomet] 250 mg PO BID 01/09/13 09/27/17 02/06/13 History Pnv,Calcium 72/Iron,Carb/Folic 1 tab PO DAILY 01/09/13 09/27/17 02/06/13 History [ Plus Iron Tablet] Doxycycline [Vibramycin CAP] 100 mg PO BID #14 capsule 02/08/13 09/27/17 Unknown Rx Methylergonovine [Methergine] 0.2 mg PO Q8HR #6 tablet 02/08/13 09/27/17 Unknown Rx Ritonavir [Norvir] 100 mg PO QDAY #1 tab 11/18/16 09/27/17 Unknown Rx predniSONE [Deltasone] 30 mg PO QDAY #90 tablet 11/18/16 09/27/17 Unknown Rx Labetalol [Normodyne TAB] 100 mg PO BID 09/27/17 09/27/17 09/27/17 09:00 History Vit Calc,Iron,Folic 1 each PO DAILY #30 tablet 09/27/17 Unknown Rx [ Vitamins] Active Meds: Active Medications Acetaminophen (Tylenol) 650 mg PO Q4H PRN PRN Reason: Pain MILD(1-3)/Fever >100.5/REBOLLAR Darunavir (Prezista) 600 mg PO BID [facility] Last Admin: 09/28/17 10:20 Dose: 600 mg Emtricitabine (Emtriva) 200 mg PO QDAY [facility] Last Admin: 09/28/17 10:20 Dose: 200 mg Famotidine (Pepcid) 20 mg PO BID [facility] Last Admin: 09/28/17 10:23 Dose: 20 mg Methyldopa (Aldomet) 250 mg PO BID [facility] Last Admin: 09/28/17 10:19 Dose: 250 mg Methylprednisolone Sodium Succinate (Solu-Medrol) 40 mg IV Q8HR [facility] Last Admin: 09/28/17 13:24 Dose: 40 mg Morphine Sulfate (Morphine) 2 mg IV Q4H PRN PRN Reason: Pain, Moderate (4-6) Ondansetron HCl (Zofran) 4 mg IV Q8H PRN PRN Reason: Nausea And Vomiting Raltegravir (Isentress) 400 mg PO BID [facility] Last Admin: 09/28/17 10:21 Dose: 400 mg Ritonavir (Norvir) 100 mg PO BID [facility] Last Admin: 09/28/17 10:21 Dose: 100 mg Sodium Chloride (Sodium Chloride Flush Syringe 10 Ml) 10 ml IV BID [facility] Last Admin: 09/28/17 10:22 Dose: 10 ml Sodium Chloride (Sodium Chloride Flush Syringe 10 Ml) 10 ml IV PRN PRN PRN Reason: LINE FLUSH Tenofovir Disoproxil Fumarate (Viread) 300 mg PO QDAY [facility] Last Admin: 09/28/17 10:22 Dose: 300 mg - Vital Signs Vital signs: Vital Signs Temp Pulse Resp BP Pulse Ox 97.9 F 91 H 16 134/77 97 09/26/17 14:38 09/26/17 14:38 09/26/17 14:38 09/26/17 14:38 09/26/17 14:38 Temp Pulse Resp BP Pulse Ox 98.5 F 90 20 152/85 95 09/28/17 07:56 09/28/17 07:56 09/28/17 07:56 09/28/17 07:56 09/28/17 07:56 Results Result Diagrams: 09/28/17 07:22 09/26/17 14:48 Abnormal lab results 09/28/17 Range/Units 07:22 WBC 15.0 H (4.5-11.0) K/mm3 MCH 27 L (28-32) pg RDW 23.9 H (13.2-15.2) % Plt Count 50 L D (140-440) K/mm3 Lymph % (Auto) 9.7 L (13.4-35.0) % Seg Neutrophils % 87.4 H (40.0-70.0) % Seg Neutrophils # 13.1 H (1.8-7.7) K/mm3 All other labs normal. Assessment and Plan - Patient Problems (1) Current Visit: Yes Status: Acute Qualifiers: Weeks of gestation: less than 8 weeks Qualified Code(s): Z3A.01 - Less than 8 weeks gestation of Plan to address problem: CHART REVIEW As per Dr Walls note would limit the use of Solu-Medrol and switch antihypertensive to labetolol if not contraindicted by her other medical problems.
--- NOTE | 2017-09-28 18:01 | Progress Note ---
Assessment and Plan Assessment: 1) HIV disease: non compliant -follows with Dr Tello -stopped ART 4 weeks ago when she found out she was (she was on prezista, descovy and tivicay) -last MP3=908, RB=392 on 11/16/16 2) - 6 weeks 2 days 3) Severe thrombocytopenia with previous immune thrombocytopenia (in Nov 2016 seen by hematology, she received IV steroids and platelets counts improved) -better on V solumedrol 4) History of severe asthma 5) Previous cryptosporidiosis 6) Recent fever and dry cough ? no evidence of sepsis 7) Leukocytosis - from IV steroids Plan: -continue truvada 1 tab qday, prezista 600 mg bid, ritonavir 100 mg bid and raltegravir 400 mg bid -f/u CD4/VL/genotype, RPR, viral hepatitis, cryptococcal serum antigen -CXR - pending -blood cx Thank you for your consultation, will follow up with you. Reina Pathak MD Infectious Diseases Specialist [facility] M [phone] O [phone] Subjective Date of service: 09/28/17 Principal diagnosis: HIV Interval history: Feels better, still some cough, dry, no fever. no pain, no bleeding Microbiology: none Current Antimicrobials: ART -truvada 1 tab qday, prezista 600 mg bid, ritonavir 100 mg bid and raltegravir 400 mg bid Previous Antimicrobials: Objective - Exam Narrative Exam: General appearance: Alert in NAD, conversant Eyes: anicteric sclerae, moist conjunctivae; no lid-lag; PERRLA HENT: Atraumatic; oropharynx clear Neck: Trachea midline; supple, no thyromegaly or lymphadenopathy Lungs: CTA, with normal respiratory effort and no intercostal retractions CV: RRR, no murmurs Abdomen: Soft, non-tender; no masses or hepatosplenomegaly Extremities: No peripheral edema or extremity lymphadenopathy Skin: old skin nodular rash Psych: Appropriate affect, alert and oriented to person, place and time. Neuro: alert and oriented x 3. Moving all extermities Lines: No CVL / PICC - Constitutional Vitals: Vital Signs Temp Pulse Resp BP Pulse Ox 98.3 F 86 20 159/84 95 09/28/17 16:38 09/28/17 16:38 09/28/17 16:38 09/28/17 16:38 09/28/17 16:38 Temperature -Last 24 Hours Temperature 98.3 F Temperature 98.5 F - Labs CBC & Chem 7: 09/28/17 07:22 09/26/17 14:48 Labs: Abnormal lab results 09/28/17 Range/Units 07:22 WBC 15.0 H (4.5-11.0) K/mm3 MCH 27 L (28-32) pg RDW 23.9 H (13.2-15.2) % Plt Count 50 L D (140-440) K/mm3 Lymph % (Auto) 9.7 L (13.4-35.0) % Seg Neutrophils % 87.4 H (40.0-70.0) % Seg Neutrophils # 13.1 H (1.8-7.7) K/mm3
--- NOTE | 2017-09-28 18:15 | Progress Note ---
Assessment and Plan Assessment and plan: 41 YO Female with AIDS, Asthma, Obesity who was sent from outpatient clinic for low platelet counts. On arrival the aptient was noted to have a PLT level of 8, 000 WITH NO NOTED BLEED. She complained of headache but no associated blurry vision. she denies any change in medication recently and reports compliance to her chronic steroids. she has been seen at the facility for the same a year ago and at the time work up was negative with recommendation to follow with Hematology outpatient. Severe thrombocytopenia Immune thrombocytopenia, ITP HIV/AIDS Iron deficiency anemia Asthma with no acute exacerbation IUP~ Plan * Improvement in platelet platelet transfusion. * ID inputs noted. ART medications adjusted considering . Patient will continue on truvada 1 tab qday, prezista 600 mg bid, ritonavir 100 mg bid and raltegravir 400 mg bid * Hematology consult already done * Check beta HCG * ID consult for med management considering * BUTT PRESSER consult input noted * Resume home meds * CD4/VL/genotype, RPR, viral hepatitis, cryptococcal serum antigen are pending * CT head to eval for bleed- already done by the time I came. * Transition to oral steroids prior to discharge. * DVT prophy with SCD * Plan of care discussed with patient extensively History Interval history: Patient seen and examined this morning no acute distress resting comfortably. No noted bleed. No headache or blurry vision. Hospitalist Physical - Physical exam Narrative exam: VITAL SIGNS: Reviewed. GENERAL: The patient appeared well nourished and normally developed. Vital signs as documented. HEAD: No signs of head trauma. EYES: Pupils are equal. Extraocular motions intact. EARS: Hearing grossly intact. MOUTH: Oropharynx is normal. NECK: No adenopathy, no JVD. CHEST: Chest with clear breath sounds bilaterally. No wheezes, rales, or rhonchi. CARDIAC: Regular rate and rhythm. S1 and S2, without murmurs, gallops, or rubs. VASCULAR: No Edema. Peripheral pulses normal and equal in all extremities. ABDOMEN: Soft, without detectable tenderness. No sign of distention. No rebound or guarding, and no masses palpated. Bowel Sounds normal. MUSCULOSKELETAL: Good range of motion of all major joints. Extremities without clubbing, cyanosis or edema. NEUROLOGIC EXAM: Alert and oriented x 3. No focal sensory or strength deficits. Speech normal. Follows commands. PSYCHIATRIC: Mood normal. SKIN: No rash or lesions. - Constitutional Vitals: Temp Pulse Resp BP Pulse Ox 98.3 F 86 20 159/84 95 09/28/17 16:38 09/28/17 16:38 09/28/17 16:38 09/28/17 16:38 09/28/17 16:38 General appearance: Present: no acute distress, well-nourished Results - Labs CBC & Chem 7: 09/28/17 07:22 09/26/17 14:48 Labs: Laboratory Last Values WBC 15.0 K/mm3 (4.5-11.0) H 09/28/17 07:22 RBC 3.98 M/mm3 (3.65-5.03) 09/28/17 07:22 Hgb 10.6 gm/dl (10.1-14.3) 09/28/17 07:22 Hct 32.4 % (30.3-42.9) 09/28/17 07:22 MCV 82 fl (79-97) 09/28/17 07:22 MCH 27 pg (28-32) L 09/28/17 07:22 MCHC 33 % (30-34) 09/28/17 07:22 RDW 23.9 % (13.2-15.2) H 09/28/17 07:22 Plt Count 50 K/mm3 (140-440) L D 09/28/17 07:22 Lymph % (Auto) 9.7 % (13.4-35.0) L 09/28/17 07:22 Wirt % (Auto) 2.9 % (0.0-7.3) 09/28/17 07:22 Eos % (Auto) 0.0 % (0.0-4.3) 09/28/17 07:22 Baso % (Auto) 0.0 % (0.0-1.8) 09/28/17 07:22 Lymph # 1.5 K/mm3 (1.2-5.4) 09/28/17 07:22 Wirt # 0.4 K/mm3 (0.0-0.8) 09/28/17 07:22 Eos # 0.0 K/mm3 (0.0-0.4) 09/28/17 07:22 Baso # 0.0 K/mm3 (0.0-0.1) 09/28/17 07:22 Seg Neutrophils % 87.4 % (40.0-70.0) H 09/28/17 07:22 Seg Neutrophils # 13.1 K/mm3 (1.8-7.7) H 09/28/17 07:22 PT 12.3 Sec. (12.2-14.9) 09/26/17 20:16 INR 0.87 (0.87-1.13) 09/26/17 20:16 APTT 27.0 Sec. (24.2-36.6) 09/26/17 20:16 Sodium 136 mmol/L (137-145) L 09/26/17 14:48 Potassium 3.9 mmol/L (3.6-5.0) 09/26/17 14:48 Chloride 97.7 mmol/L (98-107) L 09/26/17 14:48 Carbon Dioxide 25 mmol/L (22-30) 09/26/17 14:48 Anion Gap 17 mmol/L 09/26/17 14:48 BUN 10 mg/dL (7-17) 09/26/17 14:48 Creatinine 0.6 mg/dL (0.7-1.2) L 09/26/17 14:48 Estimated GFR > 60 ml/min 09/26/17 14:48 BUN/Creatinine Ratio 17 % 09/26/17 14:48 Glucose 112 mg/dL (65-100) H 09/26/17 14:48 Calcium 8.9 mg/dL (8.4-10.2) 09/26/17 14:48 Iron 43 ug/dL (37-170) 09/26/17 21:57 TIBC 428 mcg/dL (250-450) 09/26/17 21:57 Ferritin 37.8 ng/mL (13.0-400.0) 09/26/17 21:57 Total Bilirubin 0.20 mg/dL (0.1-1.2) 09/26/17 14:48 AST 21 units/L (5-40) 09/26/17 14:48 ALT 13 units/L (7-56) 09/26/17 14:48 Alkaline Phosphatase 65 units/L (35-129) 09/26/17 14:48 Lactate Dehydrogenase 241 units/L (91-180) H 09/26/17 21:55 Total Protein 8.3 g/dL (6.3-8.2) H 09/26/17 14:48 Albumin 3.8 g/dL (3.9-5) L 09/26/17 14:48 Albumin/Globulin Ratio 0.8 % 09/26/17 14:48 HCG, Quant 12614 mIU/mL (0-4) H 09/27/17 05:27 Blood Type O POSITIVE 09/26/17 14:48 Antibody Screen Negative 09/26/17 14:48
[2017-09-28 20:33] LABS: HIV-1 RNA QN PCR 3.91 Log cps/mL
--- NOTE | 2017-09-28 21:13 | Progress Note ---
Assessment and Plan - Patient Problems (1) HIV (human immunodeficiency virus infection) Current Visit: No Status: Chronic Plan to address problem: supportive. (2) Thrombocytopenia Current Visit: Yes Status: Chronic Plan to address problem: see notes. (3) HIV (human immunodeficiency virus infection) Current Visit: Yes Status: Acute Plan to address problem: see notes. (4) AIDS Current Visit: Yes Status: Acute Plan to address problem: see notes/orders. (5) Anemia Current Visit: Yes Status: Acute Plan to address problem: see notes/orders. Subjective Date of service: 09/28/17 Principal diagnosis: HIV Interval history: patient seen, resting in bed, records reviewed, including US/beta hcg elevated.plt slowly increasing.continue with current management. Patient resting in bed, labs reviewed, PLT increasing ok, wbc 15,000 ,in part due to steroid., continue steroid, and once plt stable, start tapering steroids. Objective - Constitutional Vitals: Vital Signs - 12hr 09/28/17 16:38 Temperature 98.3 F Pulse Rate 86 Respiratory 20 Rate Blood Pressure 159/84 O2 Sat by Pulse 95 Oximetry General appearance: Present: no acute distress, well-nourished - EENT Eyes: PERRL, EOM intact ENT: hearing intact, clear oral mucosa Ears: bilateral: normal - Neck Neck: supple, normal ROM - Respiratory Respiratory effort: normal Respiratory: bilateral: CTA - Breasts Breasts: deferred - Cardiovascular Rhythm: regular Heart Sounds: Present: S1 & S2. Absent: gallop, rub Extremities: pulses intact, No edema, normal color, Full ROM - Gastrointestinal General gastrointestinal: Present: soft, non-tender, non-distended, normal bowel sounds Rectal Exam: deferred - Genitourinary Female genitourinary: deferred - Integumentary Integumentary: clear, warm, dry - Musculoskeletal Musculoskeletal: 1, strength equal bilaterally - Neurologic Neurologic: moves all extremities - Psychiatric Psychiatric: memory intact, appropriate mood/affect, intact judgment & insight - Labs CBC & Chem 7: 09/28/17 07:22 09/26/17 14:48 Labs: Abnormal lab results 09/26/17 09/27/17 09/28/17 Range/Units 21:55 11:11 07:22 WBC 15.0 H (4.5-11.0) K/mm3 MCH 27 L (28-32) pg RDW 23.9 H (13.2-15.2) % Plt Count 50 L D (140-440) K/mm3 Lymph % (Auto) 9.7 L (13.4-35.0) % Seg Neutrophils % 87.4 H (40.0-70.0) % Seg Neutrophils # 13.1 H (1.8-7.7) K/mm3 Avnd-1-[place]xa 4.28 H (<=2.51) mg/L HIV-1 RNA PCR copies/ml 8100 H Copies/mL HIV-1 RNA (PCR) log 3.91 H Log cps/mL
[2017-09-28 21:59] LABS: Hepatitis A Antibody IgM Non-Reactive (NonReactive); Hepatitis B Core IgM Non-Reactive (NonReactive); Hepatitis B Surface Antigen Non-Reactive (Negative); Hepatitis C Virus Antibody Non-Reactive (NonReactive)
[2017-09-29 07:39] LABS: Basophils % (Auto) 0.2 % (0.0-1.8); Eosinophils % (Auto) 0.1 % (0.0-4.3); Hematocrit 32.9 % (30.3-42.9); Hemoglobin 10.7 gm/dl (10.1-14.3); Lymphocytes # (Auto) 1.2 K/mm3 (1.2-5.4); Mean Corpuscular HGB Conc 32 % (30-34); Mean Corpuscular Hemoglobin 27 pg (28-32); Mean Corpuscular Volume 84 fl (79-97); Monocytes # (Auto) 0.4 K/mm3 (0.0-0.8); Monocytes % (Auto) 2.7 % (0.0-7.3); Red Blood Count 3.93 M/mm3 (3.65-5.03)
[2017-09-29 07:40] LABS: Platelet Count 87 K/mm3 (140-440); Red Cell Distribution Width 24.3 % (13.2-15.2)
[2017-09-29 08:43] VITALS: BP 181/93
--- NOTE | 2017-09-29 10:42 | Discharge Summary ---
Providers - Providers Date of Admission: 09/27/17 03:17 Date of discharge: 09/29/17 Attending physician: CALIXTO DAHL 09/26/17 19:50 Consult to Physician [CONS] Stat Comment: Consulting Provider: LUDWIN SÁNCHEZ Physician Instructions: Reason For Exam: Severe Thrombocytopenia 09/26/17 20:08 Consult to Physician [CONS] Stat Comment: Consulting Provider: LUDWIN SÁNCHEZ Physician Instructions: Reason For Exam: Thrombocytopenia 09/27/17 03:44 Consult to Physician [CONS] Routine Comment: Consulting Provider: SAMREEN MURO Physician Instructions: Reason For Exam: THROMBOCYOPENIA WITH IUP 09/27/17 09:46 Consult to Physician [CONS] Routine Comment: Consulting Provider: KATIUSKA WARNER Physician Instructions: Reason For Exam: hiv-. MED EVAL Primary care physician: ELECTRICAL INSPECTOR Hospitalization Condition: Stable Pertinent studies: CT scan of head: Remarkable for bleeding. ultrasound show a viable fetus. Hospital course: Check 41-year-old with a history of AIDS asthma morbid obesity presents for acute thrombocytopenia. Patient platelets was low as 8000. Had been noncompliant with steroids. Patient admitted for immune thrombocytopenia was stabilized with steroids. Change for Medrol to by mouth steroids. Will discharge home with steroids since platelets have gone from 8000-87,000. We'll continue by mouth steroids follow-up with oncology hematology outpatient. Patient also was found to have intrauterine and temperature bowel movements were changed and adjusted considered by infectious disease. Stable to discharged with follow-up with hematology oncology in SENIOR EXAMINER and 5-7 days and also follow primary care physician as well. Disposition: TO HOME OR SELFCARE - Discharge Diagnoses (1) AIDS Status: Acute (2) Anemia Status: Acute Qualifiers: Anemia type: other cause Other causes of anemia: other cause, not classified Qualified Code(s): D64.89 - Other specified anemias Comment: Patient patient responded to steroids with increase in platelets and it was stabilized. Follow-up outpatient continue to taper steroids don't outpatient with hematology oncology (3) HIV (human immunodeficiency virus infection) Status: Acute Comment: Afterwards rales change in dosage consideration with per ID (4) Status: Acute Qualifiers: Weeks of gestation: less than 8 weeks Qualified Code(s): Z3A.01 - Less than 8 weeks gestation of (5) Thrombocythemia Status: Resolved (6) Morbid obesity Status: Chronic Comment: Educated about exercise. (7) Hypertension affecting Status: Acute Comment: Medications for hypertension changed to labetalol. Core Measure Documentation - Palliative Care Palliative Care/ Comfort Measures: Not Applicable - Core Measures Any of the following diagnoses?: none Exam - Constitutional Vitals: Temp Pulse Resp BP Pulse Ox 98.1 F 82 19 181/93 95 09/29/17 07:45 09/29/17 07:45 09/29/17 07:45 09/29/17 07:45 09/29/17 07:45 General appearance: Present: no acute distress, well-nourished - EENT Eyes: Present: PERRL ENT: hearing intact, clear oral mucosa - Neck Neck: Present: supple, normal ROM - Respiratory Respiratory effort: normal Respiratory: bilateral: CTA - Cardiovascular Heart Sounds: Present: S1 & S2. Absent: rub, click - Extremities Extremities: pulses symmetrical, No edema Peripheral Pulses: within normal limits - Abdominal General gastrointestinal: Present: soft, non-tender, non-distended, normal bowel sounds Female genitourinary: Present: normal - Integumentary Integumentary: Present: clear, warm, dry - Musculoskeletal Musculoskeletal: gait normal, strength equal bilaterally - Psychiatric Psychiatric: appropriate mood/affect, intact judgment & insight - Neurologic Neurologic: CNII-XII intact, moves all extremities Plan Activity: no restrictions Weight Bearing Status: Full Weight Bearing Diet: low salt Follow up with: SAMREEN MURO MD [Staff Physician] - 7 Days PRIMARY CARE, [Primary Care Provider] - 3-5 Days LUDWIN SÁNCHEZ DO [Staff Physician] - 7 Days Prescriptions: Darunavir [Prezista] 600 mg PO BID #60 tablet Doxycycline [Vibramycin CAP] 100 mg PO BID #14 capsule Labetalol [Normodyne TAB] 100 mg PO BID #60 tablet Ondansetron [Zofran TAB] 4 mg PO Q6HR PRN #15 tablet PRN Reason: Nausea Pnv,Calcium 72/Iron,Carb/Folic [ Plus Iron Tablet] 1 tab PO DAILY #30 tablet predniSONE [Deltasone] 30 mg PO QDAY #90 tablet Ritonavir [Norvir] 100 mg PO BID #60 tab Tenofovir [Viread] 300 mg PO QDAY #30 tablet
[2017-09-29] MEDS: EMTRIVA PO SCH (11:08)
[2017-09-29] MEDS: PEPCID PO SCH (11:08)
[2017-09-29] MEDS: ALDOMET PO SCH (11:09)
[2017-09-29] MEDS: PREZISTA PO SCH (11:09)
[2017-09-29] MEDS: ISENTRESS PO SCH (11:09)
[2017-09-29] MEDS: NORVIR PO SCH (11:10)
[2017-09-29] MEDS: SODIUM CHLORIDE FLUSH SYRINGE 10 ML IV SCH (11:11)
[2017-09-29] MEDS: VIREAD PO SCH (11:11)
[2017-09-29 14:37] LABS: CD4/CD8 Ratio 0.07 (0.86-5.00)
[2017-09-29 20:18] LABS: HIV-1 RNA QN PCR 4.18 Log cps/mL
== END 2017-09-29 15:00 | disposition home or self-care (01) ==
LOC: ED 14:05 → 3A 09-27 03:17
PROVIDERS: ADMIT Internal Medicine; ATTEND Internal Medicine
DX: D47.3 Essential (hemorrhagic) thrombocythemia (principal); D50.0 Iron deficiency anemia secondary to blood loss (chronic); E78.5 Hyperlipidemia, unspecified; J45.909 Unspecified asthma, uncomplicated; I10 Essential (primary) hypertension; E66.9 Obesity, unspecified; Z68.41 Body mass index [BMI] 40.0-44.9, adult
CPT/HCPCS: 36415; 36430; 70450; 76801; 80053; 80074; 82024; 82232; 82728; 83550; 83615; 84702; 85025; 85610; 85730; 86403; 86592; 86850; 86900; 86901; 87536; 87901; 96365; 96375; 96376; 99285; G0378; J1100; J2920; P9035

== ENCOUNTER 2017-10-29 21:34 | Inpatient (IN) | payer OTHER ==
[2017-10-29 23:06] LABS: Basophils % (Auto) 0.1 % (0.0-1.8); Eosinophils # (Auto) 0.2 K/mm3 (0.0-0.4); Eosinophils % (Auto) 2.2 % (0.0-4.3); Hematocrit 31.2 % (30.3-42.9); Hemoglobin 10.5 gm/dl (10.1-14.3); Lymphocytes # (Auto) 2.3 K/mm3 (1.2-5.4); Lymphocytes % (Auto) 25.1 % (13.4-35.0); Mean Corpuscular HGB Conc 34 % (30-34); Mean Corpuscular Hemoglobin 28 pg (28-32); Mean Corpuscular Volume 82 fl (79-97); Monocytes # (Auto) 0.9 K/mm3 (0.0-0.8); Monocytes % (Auto) 9.5 % (0.0-7.3)
[2017-10-29 23:49] LABS: Platelet Count 21 K/mm3 (140-440)
--- NOTE | 2017-10-30 00:43 | Emergency Department Report ---
ED Female HPI - General Chief complaint: Vaginal Bleeding Stated complaint: VAGINAL BLEEDING Time Seen by Provider: 10/30/17 00:30 Source: patient, corporate intern Mode of arrival: Ambulatory Limitations: Language Barrier - History of Present Illness Initial comments: Patient is a 42-year-old female that presents to the emergency room with heavy vaginal bleeding. She states she has soaked through 4 pads in the last hour. Patient states that she had her period on 10/26/2017 and her periods stopped after 3 days and restarted today but heavy. Patient states that she was and had a spontaneous in the end of September. Patient states that she was given Methergine but told to stop because her platelets were low. Patient complains of fever and chills. Patient also complains of lower abdominal pain. Patient states the lower abdominal pain as a 7 out of 10. Patient states the pain is better with rest and worse with walking. MD Complaint: vaginal bleeding - Related Data Previous Rx's Medication Instructions Recorded Last Taken Type Methylergonovine [Methergine] 0.2 mg PO Q8HR #6 tablet 02/08/13 Unknown Rx Acetaminophen [Acetaminophen TAB] 650 mg PO Q4H PRN tablet 09/29/17 Unknown Rx Darunavir [Prezista] 600 mg PO BID #60 tablet 09/29/17 Unknown Rx Famotidine [Pepcid] 20 mg PO BID tablet 09/29/17 Unknown Rx Labetalol [Normodyne TAB] 100 mg PO BID #60 tablet 09/29/17 Unknown Rx Ondansetron [Zofran TAB] 4 mg PO Q6HR PRN #15 tablet 09/29/17 Unknown Rx Pnv,Calcium 72/Iron,Carb/Folic 1 tab PO DAILY #30 tablet 09/29/17 Unknown Rx [ Plus Iron Tablet] Ritonavir [Norvir] 100 mg PO BID #60 tab 09/29/17 Unknown Rx Tenofovir [Viread] 300 mg PO QDAY #30 tablet 09/29/17 Unknown Rx predniSONE [Deltasone] 40 mg PO QDAY 30 Days tablet 10/14/17 Unknown Rx Allergies Allergy/AdvReac Type Severity Reaction Status Date / Time No Known Allergies Allergy Verified 10/29/17 21:45 ED Review of Systems ROS: Stated complaint: VAGINAL BLEEDING Other details as noted in HPI ED Past Medical Hx - Past Medical History Hx Hypertension: Yes Hx Congestive Heart Failure: No Hx Diabetes: No Hx Renal Disease: No Hx Asthma: Yes Hx COPD: No Hx HIV: Yes - Surgical History Hx Appendectomy: Yes - Social History Smoking Status: Never Smoker Substance Use Type: None - Medications Home Medications: Home Medications Medication Instructions Recorded Confirmed Last Taken Type Methylergonovine [Methergine] 0.2 mg PO Q8HR #6 tablet 02/08/13 10/14/17 Unknown Rx Acetaminophen [Acetaminophen TAB] 650 mg PO Q4H PRN tablet 09/29/17 10/14/17 Unknown Rx Darunavir [Prezista] 600 mg PO BID #60 tablet 09/29/17 10/14/17 Unknown Rx Famotidine [Pepcid] 20 mg PO BID tablet 09/29/17 10/14/17 Unknown Rx Labetalol [Normodyne TAB] 100 mg PO BID #60 tablet 09/29/17 10/14/17 Unknown Rx Ondansetron [Zofran TAB] 4 mg PO Q6HR PRN #15 tablet 09/29/17 10/14/17 Unknown Rx Pnv,Calcium 72/Iron,Carb/Folic 1 tab PO DAILY #30 tablet 09/29/17 10/14/17 Unknown Rx [ Plus Iron Tablet] Ritonavir [Norvir] 100 mg PO BID #60 tab 09/29/17 10/14/17 Unknown Rx Tenofovir [Viread] 300 mg PO QDAY #30 tablet 09/29/17 10/14/17 Unknown Rx predniSONE [Deltasone] 40 mg PO QDAY 30 Days tablet 10/14/17 Unknown Rx ED Physical Exam - General Limitations: Language Barrier ED Course Vital Signs 10/29/17 10/30/17 10/30/17 21:33 01:14 01:15 Temperature 99.1 F Pulse Rate 107 H Respiratory 18 Rate Blood Pressure 158/81 132/59 132/59 O2 Sat by Pulse 96 98 Oximetry 10/30/17 10/30/17 10/30/17 01:30 01:46 02:00 Temperature Pulse Rate Respiratory Rate Blood Pressure 132/59 139/63 139/63 O2 Sat by Pulse 98 97 97 Oximetry 10/30/17 10/30/17 10/30/17 02:15 02:32 06:16 Temperature Pulse Rate Respiratory Rate Blood Pressure 129/66 129/66 129/66 O2 Sat by Pulse 96 97 56 L Oximetry - Reevaluation(s) Reevaluation #1: Discussed with patient plan of care and admission. Patient agrees with plan of care. Patient to be admitted to the hospitalist for further evaluation and treatment. 10/30/17 06:15 - Consultations Consultation #1: Dr. fontaine consulted and discussed case/. he recommends us. 10/30/17 01:10 Discussed again the case with Dr. Fontaine. Dr Fontaine recommends Provera 10 mg daily 10 day and admission into the hospitalist service for monitoring of the patient's platelets. 10/30/17 05:43 Consultation #2: Os was consulted for admission. Hospitalist to admit patient. Case discussed with hospitalist. Dr Espinosa to assume care. Ramiro snell hematology consulted 10/30/17 06:02 Consultation #3: hemo consulted. Table Games Floor Supervisor agrees with admission.Dr Sosa will see pt in hospital. he recommends a DIC panel, and platelets 10/30/17 06:05 ED Medical Decision Making - Lab Data Result diagrams: 10/30/17 04:30 - Radiology Data Radiology results: report reviewed Ultrasound shows no signs of intrauterine . Report reviewed - Medical Decision Making She is 42-year-old female that presented with heavy vaginal bleeding. Patient found to have extremely low platelets and anemia. SHEET ROCK HANGER was consulted and wanted patient to be admitted to the medical team for further evaluation of the low platelets. Hospitalist was consulted and will admit patient for further evaluation and treatment. Hematology was also consulted and will see patient in the hospital. Orders were received from the type proof reproducer in place. - Differential Diagnosis heavy vaginal bleding. low platelets, anemia. Miscarriage. Critical care attestation.: If time is entered above; I have spent that time in minutes in the direct care of this critically ill patient, excluding procedure time. ED Disposition Clinical Impression: Thrombocytopenia, Vaginal bleeding, Lower abdominal pain Disposition: 09 OP ADMIT IP TO THIS HOSP Is pt being admited?: Yes Does the pt Need Aspirin: No Condition: Serious Time of Disposition: 06:17
--- NOTE | 2017-10-30 02:33 | Ultrasound Report ---
FINAL REPORT PROCEDURE: US OB TRANSVAGINAL TECHNIQUE: Real-time transvaginal sonography of the uterus, placenta, amniotic fluid, adnexa, and fetus was performed with image documentation. Measurements were obtained to determine age/size. M-mode Doppler was used to document heartbeat. HISTORY: pos hcg, vaginal bleeding. COMPARISON: No prior studies are available for comparison. FINDINGS: Uterus measures 10.7 x 6.4 x 7.6 centimeters. Endometrium is thickened at 24 millimeters. No intrauterine is identified. The right ovary measures 2.3 x 1.7 x 1.7 centimeters. The left ovary is not seen. There is no evidence of ectopic . There is no free pelvic fluid. IMPRESSION: Endometrial hyperplasia. There is no evidence of intrauterine or ectopic . The left ovary is not seen.
--- NOTE | 2017-10-30 02:33 | Ultrasound Report ---
FINAL REPORT PROCEDURE: US OB < = 14 WEEKS FETUS TECHNIQUE: Real-time transabdominal sonography of the uterus, placenta, amniotic fluid, adnexa, and fetus was performed with image documentation. Measurements were obtained to determine age/size. M-mode Doppler was used to document heartbeat. CPT 74205 HISTORY: pos hcg, vaginal bleeding. COMPARISON: No prior studies are available for comparison. FINDINGS: Uterus measures 10.7 x 6.4 x 7.6 centimeters. Endometrium is thickened at 24 millimeters. No intrauterine is identified. The right ovary measures 2.3 x 1.7 x 1.7 centimeters. The left ovary is not seen. There is no evidence of ectopic . There is no free pelvic fluid. IMPRESSION: Endometrial hyperplasia. There is no evidence of intrauterine or ectopic . The left ovary is not seen.
[2017-10-30 03:26] LABS: Bilirubin,Urine NEG (Negative); Blood,Urine LG (Negative); Calcium Oxalate Crystals,Urine 3+; Color,Urine Red (Yellow); Hyaline Casts,Urine 14 /LPF; Mucus,Urine FEW /HPF; Urobilinogen,Urine < 2.0 mg/dL (<2.0)
[2017-10-30 03:30] LABS: RBC,Urine > 182.0 /HPF (0.0-6.0)
[2017-10-30 05:14] LABS: Hematocrit 27.4 % (30.3-42.9); Hemoglobin 9.3 gm/dl (10.1-14.3); Mean Corpuscular HGB Conc 34 % (30-34); Mean Corpuscular Hemoglobin 29 pg (28-32); Mean Corpuscular Volume 84 fl (79-97); Red Blood Count 3.25 M/mm3 (3.65-5.03)
[2017-10-30 05:17] LABS: Red Cell Distribution Width 20.7 % (13.2-15.2)
[2017-10-30 05:54] LABS: Platelet Count 20 K/mm3 (140-440)
[2017-10-30] MEDS ORDERED: NACL 0.9% 500 ML 500 ML IV ONE ×2 (06:11→09:21)
[2017-10-30 07:25] LABS: Alanine Aminotransferase 15 units/L (7-56); Albumin 3.8 g/dL (3.9-5); BUN/Creatinine Ratio 25; Blood Urea Nitrogen 10 mg/dL (7-17); Hemolysis Index 6
--- NOTE | 2017-10-30 09:16 | Consultation ---
History of Present Illness - Reason for Consult Consult date: 10/30/17 Low PLT/Anemia Requesting physician: CATHI ABRAMS - History of Present Illness Thank you for this consult, patient seen/examined, records reviewed, case d/w patient. I had seen patient before, for ITP, and HIV/Aids.She presented with spontaneous , and bicytopenia. I had spoken to the ER doctor, and rec Platelet replacement, and DIC W/Up. ple see other w/up orders. Rec IV ABX, and LAWN CARE PROFESSIONAL eval consult/US of the ABD/Pelvics. Past History Past Medical History: anemia, HIV/AIDS Medications and Allergies Allergies Allergy/AdvReac Type Severity Reaction Status Date / Time No Known Allergies Allergy Verified 10/29/17 21:45 Home Medications Medication Instructions Recorded Confirmed Last Taken Type Methylergonovine [Methergine] 0.2 mg PO Q8HR #6 tablet 02/08/13 10/14/17 Unknown Rx Acetaminophen [Acetaminophen TAB] 650 mg PO Q4H PRN tablet 09/29/17 10/14/17 Unknown Rx Darunavir [Prezista] 600 mg PO BID #60 tablet 09/29/17 10/14/17 Unknown Rx Famotidine [Pepcid] 20 mg PO BID tablet 09/29/17 10/14/17 Unknown Rx Labetalol [Normodyne TAB] 100 mg PO BID #60 tablet 09/29/17 10/14/17 Unknown Rx Ondansetron [Zofran TAB] 4 mg PO Q6HR PRN #15 tablet 09/29/17 10/14/17 Unknown Rx Pnv,Calcium 72/Iron,Carb/Folic 1 tab PO DAILY #30 tablet 09/29/17 10/14/17 Unknown Rx [ Plus Iron Tablet] Ritonavir [Norvir] 100 mg PO BID #60 tab 09/29/17 10/14/17 Unknown Rx Tenofovir [Viread] 300 mg PO QDAY #30 tablet 09/29/17 10/14/17 Unknown Rx predniSONE [Deltasone] 40 mg PO QDAY 30 Days tablet 10/14/17 Unknown Rx Review of Systems Breasts: deferred Menstruation: period heavy Exam - Constitutional Vitals: Temp Pulse Resp BP Pulse Ox 99.1 F 107 H 18 129/66 56 L 10/29/17 21:33 10/29/17 21:33 10/29/17 21:33 10/30/17 06:16 10/30/17 06:16 General appearance: Present: mild distress, well-nourished - EENT Eyes: Present: PERRL ENT: hearing intact, clear oral mucosa - Neck Neck: Present: supple, normal ROM - Respiratory Respiratory effort: normal Respiratory: bilateral: CTA - Cardiovascular Heart Sounds: Present: S1 & S2. Absent: rub, click - Extremities Extremities: pulses symmetrical, No edema Peripheral Pulses: within normal limits - Abdominal General gastrointestinal: Present: soft, non-tender, non-distended, normal bowel sounds Female genitourinary: Present: deferred - Rectal Rectal Exam: deferred - Integumentary Integumentary: Present: clear, warm, dry - Musculoskeletal Musculoskeletal: gait normal, strength equal bilaterally - Psychiatric Psychiatric: appropriate mood/affect, intact judgment & insight - Neurologic Neurologic: CNII-XII intact, moves all extremities Results - Labs CBC & Chem 7: 10/30/17 04:30 10/30/17 06:20 Labs: Abnormal lab results 10/29/17 10/29/17 10/29/17 Range/Units 22:18 22:18 Unknown RBC (3.65-5.03) M/mm3 Hgb (10.1-14.3) gm/dl Hct (30.3-42.9) % RDW 21.0 H (13.2-15.2) % Plt Count 21 L (140-440) K/mm3 [place] % (Auto) 9.5 H (0.0-7.3) % [place] # 0.9 H (0.0-0.8) K/mm3 Creatinine (0.7-1.2) mg/dL Albumin (3.9-5) g/dL HCG, Quant 2519 H (0-4) mIU/mL Urine WBC (Auto) 136.0 H (0.0-6.0) /HPF 10/30/17 10/30/17 Range/Units 04:30 06:20 RBC 3.25 L (3.65-5.03) M/mm3 Hgb 9.3 L (10.1-14.3) gm/dl Hct 27.4 L (30.3-42.9) % RDW 20.7 H (13.2-15.2) % Plt Count 20 L (140-440) K/mm3 [place] % (Auto) (0.0-7.3) % [place] # (0.0-0.8) K/mm3 Creatinine 0.4 L (0.7-1.2) mg/dL Albumin 3.8 L (3.9-5) g/dL HCG, Quant (0-4) mIU/mL Urine WBC (Auto) (0.0-6.0) /HPF Assessment and Plan - Patient Problems (1) Lower abdominal pain Current Visit: Yes Status: Acute Plan to address problem: Pain control. (2) Vaginal bleeding Current Visit: Yes Status: Acute Plan to address problem: Replacement/ LAWN CARE PROFESSIONAL eval. (3) Thrombocytopenia Current Visit: Yes Status: Chronic Plan to address problem: Replacement transfusion. (4) AIDS Current Visit: No Status: Acute Plan to address problem: ID Eval. (5) Anemia Current Visit: No Status: Acute Qualifiers: Anemia type: other cause Other causes of anemia: other cause, not classified Qualified Code(s): D64.89 - Other specified anemias Plan to address problem: replacement transfusion.
--- NOTE | 2017-10-30 09:57 | History and Physical Report ---
History of Present Illness Date of examination: 10/30/17 Date of admission: 10/30/17 06:09 Chief complaint: Excessive vaginal bleeding History of present illness: Patient is 42-year-old with history of ITP, HIV/AIDS. She presented with heavy bleeding from menstrual cycle for several days. She was evaluated in Emergency department. Hemoglobin was 10.2 , but platelet was low at 21. She has a finance attorney Dr. Hima Fernando. Admit to medical surgical floor for further management Past History Past Medical History: anemia, HIV/AIDS, hypertension, other (Thrombocytopenia, ITP,asthma) Past Surgical History: appendectomy, Other (LEEP surgery) Social history: , lives with family, full code. denies: smoking, alcohol abuse Family history: no significant family history Medications and Allergies Allergies Allergy/AdvReac Type Severity Reaction Status Date / Time No Known Allergies Allergy Verified 10/29/17 21:45 Home Medications Medication Instructions Recorded Confirmed Last Taken Type Methylergonovine [Methergine] 0.2 mg PO Q8HR #6 tablet 02/08/13 10/14/17 Unknown Rx Acetaminophen [Acetaminophen TAB] 650 mg PO Q4H PRN tablet 09/29/17 10/14/17 Unknown Rx Darunavir [Prezista] 600 mg PO BID #60 tablet 09/29/17 10/14/17 Unknown Rx Famotidine [Pepcid] 20 mg PO BID tablet 09/29/17 10/14/17 Unknown Rx Labetalol [Normodyne TAB] 100 mg PO BID #60 tablet 09/29/17 10/14/17 Unknown Rx Ondansetron [Zofran TAB] 4 mg PO Q6HR PRN #15 tablet 09/29/17 10/14/17 Unknown Rx Pnv,Calcium 72/Iron,Carb/Folic 1 tab PO DAILY #30 tablet 09/29/17 10/14/17 Unknown Rx [ Plus Iron Tablet] Ritonavir [Norvir] 100 mg PO BID #60 tab 09/29/17 10/14/17 Unknown Rx Tenofovir [Viread] 300 mg PO QDAY #30 tablet 09/29/17 10/14/17 Unknown Rx predniSONE [Deltasone] 40 mg PO QDAY 30 Days tablet 10/14/17 Unknown Rx Review of Systems All systems: negative (No fever,mild headache, no chest pain, no abd pain. All other systems reviewed and are negative) Exam - Physical Exam Narrative exam: Constitutional: Not in acute distress, Obese HEENT: Atraumatic, normocephalic Neck: supple, no lymphadenopathy, Lungs: Clear to auscultation, bilaterally, no wheeze, no crackles CVS: S1-S2 regular, no murmurs, rubs or gallop, Abdomen: soft, non-tender, non distended,bowel sounds are normal, Musculoskeletal: No edema, clubbing, or cyanosis LOCATE TECHNICIAN: awake, alert,oriented x3, no focal neurological signs - Constitutional Vitals: Temp Pulse Resp BP Pulse Ox 99.1 F 107 H 18 129/66 56 L 10/29/17 21:33 10/29/17 21:33 10/29/17 21:33 10/30/17 06:16 10/30/17 06:16 Results - Labs CBC & Chem 7: 10/30/17 04:30 10/30/17 06:20 Labs: Abnormal lab results 10/29/17 10/29/17 10/29/17 Range/Units 22:18 22:18 Unknown RBC (3.65-5.03) M/mm3 Hgb (10.1-14.3) gm/dl Hct (30.3-42.9) % RDW 21.0 H (13.2-15.2) % Plt Count 21 L (140-440) K/mm3 [place] % (Auto) 9.5 H (0.0-7.3) % [place] # 0.9 H (0.0-0.8) K/mm3 Creatinine (0.7-1.2) mg/dL Albumin (3.9-5) g/dL HCG, Quant 2519 H (0-4) mIU/mL Urine WBC (Auto) 136.0 H (0.0-6.0) /HPF 10/30/17 10/30/17 Range/Units 04:30 06:20 RBC 3.25 L (3.65-5.03) M/mm3 Hgb 9.3 L (10.1-14.3) gm/dl Hct 27.4 L (30.3-42.9) % RDW 20.7 H (13.2-15.2) % Plt Count 20 L (140-440) K/mm3 [place] % (Auto) (0.0-7.3) % [place] # (0.0-0.8) K/mm3 Creatinine 0.4 L (0.7-1.2) mg/dL Albumin 3.8 L (3.9-5) g/dL HCG, Quant (0-4) mIU/mL Urine WBC (Auto) (0.0-6.0) /HPF Assessment and Plan ITP with severe thrombocytopenia. Admit to med/surg Platelet count 21 on admission. Transfused Platelet pheresis, repeat Thrombocytopenia. repeat platelet count after transfusion. Menorrhagia, OB/Gyne consulted Hypertension. Monitor BP Asthma. Stable. No SOB currently HIV/AIDS. To follow as outpatient DVT prophylaxis. SCDs only because of thrombocytopenia and menorrhagia FULL CODE STATUS
--- NOTE | 2017-10-30 10:33 | Consultation ---
History of Present Illness Consult date: 10/30/17 Reason for consult: menorrhagia History of present illness: History obtained through her and patient: Asked to see this 42-year-old female for heavy menses. She is HIV positive and has a history of ITP. Hemoglobin and hematocrit and vitals have been stable. Pelvic ultrasound shows thickened endometrium otherwise unremarkable COPY TECHNICIAN history significant for regular heavy cycles LMP is yesterday (she did have 3 days of spotting on the this month) Patient's pad is currently dry Past History Past Medical History: asthma, hypertension, hematologic disorders, other (HIV positive) Past Surgical History: appendectomy, COPY TECHNICIAN/uterine surgery (status post LEEP), D&C COPY TECHNICIAN History: HIV - Obstetrical History : 4 Medications and Allergies Allergies Allergy/AdvReac Type Severity Reaction Status Date / Time No Known Allergies Allergy Verified 10/29/17 21:45 Home Medications Medication Instructions Recorded Confirmed Last Taken Type Methylergonovine [Methergine] 0.2 mg PO Q8HR #6 tablet 02/08/13 10/14/17 Unknown Rx Acetaminophen [Acetaminophen TAB] 650 mg PO Q4H PRN tablet 09/29/17 10/14/17 Unknown Rx Darunavir [Prezista] 600 mg PO BID #60 tablet 09/29/17 10/14/17 Unknown Rx Famotidine [Pepcid] 20 mg PO BID tablet 09/29/17 10/14/17 Unknown Rx Labetalol [Normodyne TAB] 100 mg PO BID #60 tablet 09/29/17 10/14/17 Unknown Rx Ondansetron [Zofran TAB] 4 mg PO Q6HR PRN #15 tablet 09/29/17 10/14/17 Unknown Rx Pnv,Calcium 72/Iron,Carb/Folic 1 tab PO DAILY #30 tablet 09/29/17 10/14/17 Unknown Rx [ Plus Iron Tablet] Ritonavir [Norvir] 100 mg PO BID #60 tab 09/29/17 10/14/17 Unknown Rx Tenofovir [Viread] 300 mg PO QDAY #30 tablet 09/29/17 10/14/17 Unknown Rx predniSONE [Deltasone] 40 mg PO QDAY 30 Days tablet 10/14/17 Unknown Rx Review of Systems Gastrointestinal: no abdominal pain, no nausea, no vomiting Genitourinary: vaginal bleeding (Mild flow), no pelvic pain, no contractions - Vital Signs Vital signs: Vital Signs Temp Pulse Resp BP Pulse Ox 99.1 F 107 H 18 158/81 96 10/29/17 21:33 10/29/17 21:33 10/29/17 21:33 10/29/17 21:33 10/29/17 21:33 Temp Pulse Resp BP Pulse Ox 99.1 F 107 H 18 129/66 56 L 10/29/17 21:33 10/29/17 21:33 10/29/17 21:33 10/30/17 06:16 10/30/17 06:16 - Physical Exam Abdomen: Positive: normal appearance, soft. Negative: distention, tenderness, guarding Genitourinary (Female): Positive: normal external genitalia Uterus: Positive: normal size Adnexa: both: normal Results Result Diagrams: 10/30/17 04:30 10/30/17 06:20 Abnormal lab results 10/29/17 10/29/17 10/29/17 Range/Units 22:18 22:18 Unknown RBC (3.65-5.03) M/mm3 Hgb (10.1-14.3) gm/dl Hct (30.3-42.9) % RDW 21.0 H (13.2-15.2) % Plt Count 21 L (140-440) K/mm3 [place] % (Auto) 9.5 H (0.0-7.3) % [place] # 0.9 H (0.0-0.8) K/mm3 Creatinine (0.7-1.2) mg/dL Albumin (3.9-5) g/dL HCG, Quant 2519 H (0-4) mIU/mL Urine WBC (Auto) 136.0 H (0.0-6.0) /HPF 10/30/17 10/30/17 Range/Units 04:30 06:20 RBC 3.25 L (3.65-5.03) M/mm3 Hgb 9.3 L (10.1-14.3) gm/dl Hct 27.4 L (30.3-42.9) % RDW 20.7 H (13.2-15.2) % Plt Count 20 L (140-440) K/mm3 [place] % (Auto) (0.0-7.3) % [place] # (0.0-0.8) K/mm3 Creatinine 0.4 L (0.7-1.2) mg/dL Albumin 3.8 L (3.9-5) g/dL HCG, Quant (0-4) mIU/mL Urine WBC (Auto) (0.0-6.0) /HPF All other labs normal. Assessment and Plan A: 42-year-old with heavy menses P: -Appears to have slowed down at this time -She should follow up with her primary AIRCRAFT POWER PLANT ASSEMBLER on discharge -Thank you for this consult, will sign off at this time - Patient Problems (1) Menorrhagia Current Visit: Yes Status: Acute
[2017-10-30] MEDS ORDERED: NACL 0.9% 500 ML 500 ML IV SCH (14:00)
[2017-10-30] MEDS ORDERED: NORCO 5/325 PO PRN (14:59)
[2017-10-30] MEDS ORDERED: ZOFRAN IV PRN (14:59)
[2017-10-30] MEDS ORDERED: SODIUM CHLORIDE FLUSH SYRINGE 10 ML IV PRN (14:59)
[2017-10-30] MEDS ORDERED: TYLENOL PO PRN (14:59)
[2017-10-30] MEDS: LEVAQUIN 500MG/100ML 500 MG/100 ML BAG IV SCH (18:05)
[2017-10-30] MEDS: SODIUM CHLORIDE FLUSH SYRINGE 10 ML IV SCH (23:02)
[2017-10-31 08:04] LABS: Hematocrit 25.1 % (30.3-42.9); Hemoglobin 8.6 gm/dl (10.1-14.3); Mean Corpuscular HGB Conc 34 % (30-34); Mean Corpuscular Hemoglobin 28 pg (28-32); Mean Corpuscular Volume 81 fl (79-97); Red Blood Count 3.11 M/mm3 (3.65-5.03)
[2017-10-31 08:09] LABS: Platelet Count 45 K/mm3 (140-440); Red Cell Distribution Width 20.8 % (13.2-15.2)
[2017-10-31 08:22] LABS: BUN/Creatinine Ratio 18; Blood Urea Nitrogen 7 mg/dL (7-17); Calcium 8.7 mg/dL (8.4-10.2); Hemolysis Index 0
[2017-10-31 09:34] LABS: Anisocytosis 1+; Basophils % (Manual) 0 % (0.0-1.8); Platelet Estimate Cons; Total Cells Counted 100
[2017-10-31] MEDS: NORMODYNE PO SCH ×2 (11:21→23:17)
[2017-10-31] MEDS: DELTASONE PO SCH (11:21)
[2017-10-31] MEDS ORDERED: TYLENOL PO PRN (11:35)
--- NOTE | 2017-10-31 11:44 | Progress Note ---
Assessment and Plan Assessment and plan: ITP with severe thrombocytopenia. Admitted to med/surg Platelet count now 45 , up from 21 on admission. Transfused Platelet pheresis, Prednisone resumed 40mg daily for ITP Thrombocytopenia. Menorrhagia, Subsided OB/Gyne consulted, he evaluated and recommended outpatient follow up with Dr. Zain Fernando Hypertensive urgency. Add Norvasc to labetalol. Monitor BP Asthma. Stable. No SOB currently HIV/AIDS. cont HAART To follow as outpatient DVT prophylaxis. SCDs only because of thrombocytopenia and menorrhagia FULL CODE STATUS History Interval history: Less vaginal bleeding Hospitalist Physical - Physical exam Narrative exam: Constitutional: Not in acute distress, Obese HEENT: Atraumatic, normocephalic Neck: supple, no lymphadenopathy, Lungs: Clear to auscultation, bilaterally, no wheeze, no crackles CVS: S1-S2 regular, no murmurs, rubs or gallop, Abdomen: soft, non-tender, non distended,bowel sounds are normal, Musculoskeletal: No edema, clubbing, or cyanosis WINDOWS LAPTOP TECHNICIAN: awake, alert,oriented x3, no focal neurological signs - Constitutional Vitals: Temp Pulse Resp BP Pulse Ox 98.1 F 98 H 24 178/103 96 10/31/17 05:12 10/31/17 11:21 10/31/17 05:12 10/31/17 11:21 10/31/17 05:12 General appearance: Present: obese Results - Labs CBC & Chem 7: 10/31/17 07:40 10/31/17 07:40 Labs: Laboratory Last Values WBC 9.0 K/mm3 (4.5-11.0) 10/31/17 07:40 RBC 3.11 M/mm3 (3.65-5.03) L 10/31/17 07:40 Hgb 8.6 gm/dl (10.1-14.3) L 10/31/17 07:40 Hct 25.1 % (30.3-42.9) L 10/31/17 07:40 MCV 81 fl (79-97) 10/31/17 07:40 MCH 28 pg (28-32) 10/31/17 07:40 MCHC 34 % (30-34) 10/31/17 07:40 RDW 20.8 % (13.2-15.2) H 10/31/17 07:40 Plt Count 45 K/mm3 (140-440) L D 10/31/17 07:40 Lymph % (Auto) 25.1 % (13.4-35.0) 10/29/17 22:18 [place]ansom % (Auto) 9.5 % (0.0-7.3) H 10/29/17 22:18 Eos % (Auto) 2.2 % (0.0-4.3) 10/29/17 22:18 Baso % (Auto) 0.1 % (0.0-1.8) 10/29/17 22:18 Lymph # 2.3 K/mm3 (1.2-5.4) 10/29/17 22:18 Ransom # 0.9 K/mm3 (0.0-0.8) H 10/29/17 22:18 Eos # 0.2 K/mm3 (0.0-0.4) 10/29/17 22:18 Baso # 0.0 K/mm3 (0.0-0.1) 10/29/17 22:18 Add Manual Diff Complete 10/31/17 07:40 Total Counted 100 10/31/17 07:40 Seg Neutrophils % 63.1 % (40.0-70.0) 10/29/17 22:18 Seg Neuts % (Manual) 77.0 % (40.0-70.0) H 10/31/17 07:40 Band Neutrophils % 0 % 10/31/17 07:40 Lymphocytes % (Manual) 13.0 % (13.4-35.0) L 10/31/17 07:40 Reactive Lymphs % (Man) 1.0 % 10/31/17 07:40 Monocytes % (Manual) 7.0 % (0.0-7.3) 10/31/17 07:40 Eosinophils % (Manual) 1.0 % (0.0-4.3) 10/31/17 07:40 Basophils % (Manual) 0 % (0.0-1.8) 10/31/17 07:40 Metamyelocytes % 1.0 % 10/31/17 07:40 Myelocytes % 0 % 10/31/17 07:40 Promyelocytes % 0 % 10/31/17 07:40 Blast Cells % 0 % 10/31/17 07:40 Nucleated RBC % Not Reportable 10/31/17 07:40 Seg Neutrophils # 5.7 K/mm3 (1.8-7.7) 10/29/17 22:18 Seg Neutrophils # Man 6.9 K/mm3 (1.8-7.7) 10/31/17 07:40 Band Neutrophils # 0.0 K/mm3 10/31/17 07:40 Lymphocytes # (Manual) 1.2 K/mm3 (1.2-5.4) 10/31/17 07:40 Abs React Lymphs (Man) 0.1 K/mm3 10/31/17 07:40 Monocytes # (Manual) 0.6 K/mm3 (0.0-0.8) 10/31/17 07:40 Eosinophils # (Manual) 0.1 K/mm3 (0.0-0.4) 10/31/17 07:40 Basophils # (Manual) 0.0 K/mm3 (0.0-0.1) 10/31/17 07:40 Metamyelocytes # 0.1 K/mm3 10/31/17 07:40 Myelocytes # 0.0 K/mm3 10/31/17 07:40 Promyelocytes # 0.0 K/mm3 10/31/17 07:40 Blast Cells # 0.0 K/mm3 10/31/17 07:40 WBC Morphology Not Reportable 10/31/17 07:40 Hypersegmented Neuts Not Reportable 10/31/17 07:40 Hyposegmented Neuts Not Reportable 10/31/17 07:40 Hypogranular Neuts Not Reportable 10/31/17 07:40 Smudge Cells Not Reportable 10/31/17 07:40 Toxic Granulation Not Reportable 10/31/17 07:40 Toxic Vacuolation Not Reportable 10/31/17 07:40 Dohle Bodies Not Reportable 10/31/17 07:40 Pelger-Huet Anomaly Not Reportable 10/31/17 07:40 Ronaldo Rods Not Reportable 10/31/17 07:40 Platelet Estimate Cons 10/31/17 07:40 Clumped Platelets Not Reportable 10/31/17 07:40 Plt Clumps, EDTA Not Reportable 10/31/17 07:40 Large Platelets Not Reportable 10/31/17 07:40 Giant Platelets Not Reportable 10/31/17 07:40 Platelet Satelliting Not Reportable 10/31/17 07:40 Plt Morphology Comment Not Reportable 10/31/17 07:40 RBC Morphology Not Reportable 10/31/17 07:40 Dimorphic RBCs Not Reportable 10/31/17 07:40 Polychromasia Not Reportable 10/31/17 07:40 Hypochromasia Not Reportable 10/31/17 07:40 Poikilocytosis Not Reportable 10/31/17 07:40 Anisocytosis 1+ 10/31/17 07:40 Microcytosis Not Reportable 10/31/17 07:40 Macrocytosis Not Reportable 10/31/17 07:40 Spherocytes Not Reportable 10/31/17 07:40 Pappenheimer Bodies Not Reportable 10/31/17 07:40 Sickle Cells Not Reportable 10/31/17 07:40 Target Cells Not Reportable 10/31/17 07:40 Tear Drop Cells Not Reportable 10/31/17 07:40 Ovalocytes Not Reportable 10/31/17 07:40 Helmet Cells Not Reportable 10/31/17 07:40 [place] Bodies Not Reportable 10/31/17 07:40 [place] Rings Not Reportable 10/31/17 07:40 Dolphin Cells Not Reportable 10/31/17 07:40 Bite Cells Not Reportable 10/31/17 07:40 Crenated Cell Not Reportable 10/31/17 07:40 Elliptocytes Not Reportable 10/31/17 07:40 Acanthocytes (Spur) Not Reportable 10/31/17 07:40 Rouleaux Not Reportable 10/31/17 07:40 Hemoglobin C Crystals Not Reportable 10/31/17 07:40 Schistocytes Not Reportable 10/31/17 07:40 Malaria parasites Not Reportable 10/31/17 07:40 Dave Bodies Not Reportable 10/31/17 07:40 Hem Pathologist Commnt No 10/31/17 07:40 Sodium 144 mmol/L (137-145) 10/31/17 07:40 Potassium 3.5 mmol/L (3.6-5.0) L 10/31/17 07:40 Chloride 105.2 mmol/L (98-107) 10/31/17 07:40 Carbon Dioxide 24 mmol/L (22-30) 10/31/17 07:40 Anion Gap 18 mmol/L 10/31/17 07:40 BUN 7 mg/dL (7-17) 10/31/17 07:40 Creatinine 0.4 mg/dL (0.7-1.2) L 10/31/17 07:40 Estimated GFR > 60 ml/min 10/31/17 07:40 BUN/Creatinine Ratio 18 % 10/31/17 07:40 Glucose 125 mg/dL (65-100) H 10/31/17 07:40 Calcium 8.7 mg/dL (8.4-10.2) 10/31/17 07:40 Total Bilirubin 0.20 mg/dL (0.1-1.2) 10/30/17 06:20 AST 19 units/L (5-40) 10/30/17 06:20 ALT 15 units/L (7-56) 10/30/17 06:20 Alkaline Phosphatase 67 units/L (35-129) 10/30/17 06:20 Lactate Dehydrogenase 198 units/L (91-180) H 10/30/17 09:46 Total Protein 7.2 g/dL (6.3-8.2) 10/30/17 06:20 Albumin 3.8 g/dL (3.9-5) L 10/30/17 06:20 Albumin/Globulin Ratio 1.1 % 10/30/17 06:20 HCG, Quant 2519 mIU/mL (0-4) H 10/29/17 22:18 Urine Color Red (Yellow) 10/29/17 Unknown Urine Turbidity Clear (Clear) 10/29/17 Unknown Urine pH 6.0 (5.0-7.0) 10/29/17 Unknown Ur Specific [place] 1.023 (1.003-1.030) 10/29/17 Unknown Urine Protein 100 mg/dl mg/dL (Negative) 10/29/17 Unknown Urine Glucose (UA) Neg mg/dL (Negative) 10/29/17 Unknown Urine Ketones Neg mg/dL (Negative) 10/29/17 Unknown Urine Blood Lg (Negative) 10/29/17 Unknown Urine Nitrite Neg (Negative) 10/29/17 Unknown Urine Bilirubin Neg (Negative) 10/29/17 Unknown Urine Urobilinogen < 2.0 mg/dL (<2.0) 10/29/17 Unknown Ur Leukocyte Esterase Mod (Negative) 10/29/17 Unknown Urine WBC (Auto) 136.0 /HPF (0.0-6.0) H 10/29/17 Unknown Urine RBC (Auto) > 182.0 /HPF (0.0-6.0) 10/29/17 Unknown Calcium Oxalate Crystal 3+ 10/29/17 Unknown Hyaline Casts 14 /LPF 10/29/17 Unknown Urine Mucus Few /HPF 10/29/17 Unknown Blood Type O POSITIVE 10/29/17 22:18 Antibody Screen Positive 10/29/17 22:18
[2017-10-31] MEDS ORDERED: IRON CARB PO SCH (11:45)
[2017-10-31] MEDS ORDERED: FOLIC PO SCH (11:45)
[2017-10-31] MEDS ORDERED: PNV CALCIUM PO SCH (11:45)
[2017-10-31] MEDS ORDERED: DELTASONE PO SCH (12:00)
[2017-10-31] MEDS ORDERED: NORMODYNE PO SCH (12:00)
[2017-10-31] MEDS ORDERED: METHERGINE PO SCH (14:00)
[2017-10-31] MEDS: NORVASC PO SCH (14:01)
[2017-10-31] MEDS: PEPCID PO SCH ×2 (14:01→23:18)
[2017-10-31] MEDS: PRENATAL VITAMIN PO SCH (14:01)
[2017-10-31] MEDS: SODIUM CHLORIDE FLUSH SYRINGE 10 ML IV SCH ×2 (14:03→23:19)
[2017-10-31] MEDS: NORVIR PO SCH ×2 (17:46→23:18)
[2017-10-31] MEDS: PREZISTA PO SCH ×2 (17:47→23:18)
[2017-10-31] MEDS: VIREAD PO SCH (17:48)
[2017-10-31] MEDS: LEVAQUIN 500MG/100ML 500 MG/100 ML BAG IV SCH (17:49)
--- NOTE | 2017-10-31 20:16 | Progress Note ---
Assessment and Plan - Patient Problems (1) Lower abdominal pain Current Visit: Yes Status: Acute Plan to address problem: Pain control. 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 (3) Thrombocytopenia Current Visit: Yes Status: Chronic Plan to address problem: Replacement transfusion. (4) AIDS Current Visit: No Status: Acute Plan to address problem: ID Eval. (5) Anemia Current Visit: No Status: Acute Qualifiers: Anemia type: other cause Other causes of anemia: other cause, not classified Qualified Code(s): D64.89 - Other specified anemias Subjective Date of service: 10/31/17 Interval history: Patient seen/resting in bed. Labs reviewed, some improvement in PLT. Objective - Constitutional Vitals: Vital Signs - 12hr 10/31/17 10/31/17 10/31/17 10:56 11:21 12:21 Temperature 97.1 F L Pulse Rate 98 H 98 H 90 Respiratory 20 Rate Blood Pressure 178/103 178/103 172/92 O2 Sat by Pulse 97 97 Oximetry 10/31/17 18:21 Temperature 98.0 F Pulse Rate Respiratory 20 Rate Blood Pressure 191/86 O2 Sat by Pulse Oximetry General appearance: Present: mild distress, well-nourished - EENT Eyes: PERRL, EOM intact ENT: hearing intact, clear oral mucosa Ears: bilateral: normal - Neck Neck: supple, normal ROM - Respiratory Respiratory effort: normal - Breasts Breasts: deferred - Cardiovascular Rhythm: regular Heart Sounds: Present: S1 & S2. Absent: gallop, rub Extremities: pulses intact, No edema, normal color, Full ROM - Gastrointestinal General gastrointestinal: Present: soft, non-tender, non-distended, normal bowel sounds Rectal Exam: deferred - Genitourinary Female genitourinary: deferred - Integumentary Integumentary: clear, warm, dry - Musculoskeletal Musculoskeletal: 1, strength equal bilaterally - Neurologic Neurologic: moves all extremities - Psychiatric Psychiatric: memory intact, appropriate mood/affect, intact judgment & insight - Labs CBC & Chem 7: 10/31/17 07:40 10/31/17 07:40 Labs: Abnormal lab results 10/31/17 10/31/17 Range/Units 07:40 07:40 RBC 3.11 L (3.65-5.03) M/mm3 Hgb 8.6 L (10.1-14.3) gm/dl Hct 25.1 L (30.3-42.9) % RDW 20.8 H (13.2-15.2) % Plt Count 45 L D (140-440) K/mm3 Seg Neuts % (Manual) 77.0 H (40.0-70.0) % Lymphocytes % (Manual) 13.0 L (13.4-35.0) % Potassium 3.5 L (3.6-5.0) mmol/L Creatinine 0.4 L (0.7-1.2) mg/dL Glucose 125 H (65-100) mg/dL
[2017-11-01 05:52] LABS: Hematocrit 24.7 % (30.3-42.9); Mean Corpuscular HGB Conc 33 % (30-34); Mean Corpuscular Hemoglobin 27 pg (28-32); Mean Corpuscular Volume 82 fl (79-97); Red Blood Count 3.01 M/mm3 (3.65-5.03)
[2017-11-01 05:54] LABS: Platelet Count 65 K/mm3 (140-440); Red Cell Distribution Width 21.2 % (13.2-15.2)
[2017-11-01 06:15] LABS: BUN/Creatinine Ratio 18; Blood Urea Nitrogen 7 mg/dL (7-17); Calcium 8.7 mg/dL (8.4-10.2); Hemolysis Index 0
[2017-11-01] MEDS: NORVASC PO SCH (11:45)
[2017-11-01] MEDS: PREZISTA PO SCH ×2 (11:45→22:35)
[2017-11-01] MEDS: PRENATAL VITAMIN PO SCH (11:46)
[2017-11-01] MEDS: PEPCID PO SCH ×2 (11:46→22:35)
[2017-11-01] MEDS: NORMODYNE PO SCH ×2 (11:46→22:37)
[2017-11-01] MEDS: DELTASONE PO SCH (11:46)
[2017-11-01] MEDS: LEVAQUIN PO SCH (11:47)
[2017-11-01] MEDS: NORVIR PO SCH ×2 (11:47→22:36)
[2017-11-01] MEDS: VIREAD PO SCH (11:48)
[2017-11-01] MEDS: SODIUM CHLORIDE FLUSH SYRINGE 10 ML IV SCH ×2 (11:48→22:37)
[2017-11-01] MEDS ORDERED: K-DUR PO ONE ×2 (14:58→17:37)
--- NOTE | 2017-11-01 14:58 | Progress Note ---
Assessment and Plan /ITP with severe thrombocytopenia. Admitted to med/surg Platelet count now 65 , up from 21 on admission. Transfused Platelet pheresis, Prednisone resumed 40mg daily for ITP /Menorrhagia, Subsided, likely worsened due to low platelet OB/Gyne consulted, he evaluated and recommended outpatient follow up with Dr. Zain Fernando /Hypertensive urgency. cont Norvasc and labetalol. Monitor BP /Asthma. Stable. No SOB currently /HIV/AIDS. cont HAART To follow as outpatient DVT prophylaxis. SCDs only because of thrombocytopenia and menorrhagia FULL CODE STATUS disposition: d/c home when clears by arranger assembler Hospitalist Physical Constitutional: Not in acute distress, Obese HEENT: Atraumatic, normocephalic Neck: supple, no lymphadenopathy, Lungs: Clear to auscultation, bilaterally, no wheeze, no crackles CVS: S1-S2 regular, no murmurs, rubs or gallop, Abdomen: soft, non-tender, non distended,bowel sounds are normal, Musculoskeletal: No edema, clubbing, or cyanosis NATURAL FABRICATOR: awake, alert,oriented x3, no focal neurological signs Subjective Date of service: 11/01/17 Interval history: Pt seen and examined Low vaginal bleeding, platelet improving Objective - Constitutional Vitals: Vital Signs - 12hr 11/01/17 11/01/17 11/01/17 04:35 10:45 11:46 Temperature 98.4 F 98.5 F Pulse Rate 89 95 H 90 Respiratory 20 20 Rate Blood Pressure 132/57 171/84 165/80 O2 Sat by Pulse 96 94 Oximetry - Labs CBC & Chem 7: 11/02/17 08:06 11/02/17 08:06 Labs: Abnormal lab results 11/01/17 11/01/17 Range/Units 05:28 05:28 WBC 11.7 H (4.5-11.0) K/mm3 RBC 3.01 L (3.65-5.03) M/mm3 Hgb 8.0 L (10.1-14.3) gm/dl Hct 24.7 L (30.3-42.9) % MCH 27 L (28-32) pg RDW 21.2 H (13.2-15.2) % Plt Count 65 L (140-440) K/mm3 Potassium 3.5 L (3.6-5.0) mmol/L Creatinine 0.4 L (0.7-1.2) mg/dL Glucose 135 H (65-100) mg/dL
[2017-11-01] MEDS ORDERED: NORVASC PO SCH (14:59)
[2017-11-01] MEDS ORDERED: NORVASC PO ONE (16:00)
--- NOTE | 2017-11-01 19:22 | Progress Note ---
Assessment and Plan - Patient Problems (1) Lower abdominal pain Current Visit: Yes Status: Acute Plan to address problem: Pain control. 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 (3) Thrombocytopenia Current Visit: Yes Status: Chronic Plan to address problem: Replacement transfusion. fairly stable. (4) AIDS Current Visit: No Status: Acute Plan to address problem: ID Eval. supportive. (5) Anemia Current Visit: No Status: Acute Qualifiers: Anemia type: other cause Other causes of anemia: other cause, not classified Qualified Code(s): D64.89 - Other specified anemias Plan to address problem: replacement transfusion. stable. Subjective Date of service: 11/01/17 Interval history: Patient seen/resting in bed. Labs reviewed, some improvement in PLT. Patient seen, resting in bed, labs reviewed, and improving.Disposition, as per you. she will see me in the office. Objective - Constitutional Vitals: Vital Signs - 12hr 11/01/17 11/01/17 11/01/17 10:45 11:46 16:52 Temperature 98.5 F 98.0 F Pulse Rate 95 H 90 97 H Respiratory 20 20 Rate Blood Pressure 171/84 165/80 168/91 O2 Sat by Pulse 94 96 Oximetry General appearance: Present: no acute distress, well-nourished - EENT Eyes: PERRL, EOM intact ENT: hearing intact, clear oral mucosa Ears: bilateral: normal - Neck Neck: supple, normal ROM - Respiratory Respiratory effort: normal Respiratory: bilateral: CTA - Breasts Breasts: deferred - Cardiovascular Rhythm: regular Heart Sounds: Present: S1 & S2. Absent: gallop, rub Extremities: pulses intact, No edema, normal color, Full ROM - Gastrointestinal General gastrointestinal: Present: soft, non-tender, non-distended, normal bowel sounds Rectal Exam: deferred - Genitourinary Female genitourinary: deferred - Integumentary Integumentary: clear, warm, dry - Musculoskeletal Musculoskeletal: 1, strength equal bilaterally - Neurologic Neurologic: moves all extremities - Psychiatric Psychiatric: memory intact, appropriate mood/affect, intact judgment & insight - Labs CBC & Chem 7: 11/01/17 05:28 11/01/17 05:28 Labs: Abnormal lab results 11/01/17 11/01/17 Range/Units 05:28 05:28 WBC 11.7 H (4.5-11.0) K/mm3 RBC 3.01 L (3.65-5.03) M/mm3 Hgb 8.0 L (10.1-14.3) gm/dl Hct 24.7 L (30.3-42.9) % MCH 27 L (28-32) pg RDW 21.2 H (13.2-15.2) % Plt Count 65 L (140-440) K/mm3 Potassium 3.5 L (3.6-5.0) mmol/L Creatinine 0.4 L (0.7-1.2) mg/dL Glucose 135 H (65-100) mg/dL
[2017-11-02 08:52] LABS: Hematocrit 24.5 % (30.3-42.9); Hemoglobin 8.1 gm/dl (10.1-14.3); Mean Corpuscular HGB Conc 33 % (30-34); Mean Corpuscular Hemoglobin 27 pg (28-32); Mean Corpuscular Volume 83 fl (79-97); Platelet Count 105 K/mm3 (140-440); Red Blood Count 2.95 M/mm3 (3.65-5.03)
[2017-11-02 08:56] LABS: Red Cell Distribution Width 21.1 % (13.2-15.2)
[2017-11-02 09:13] LABS: BUN/Creatinine Ratio 23; Blood Urea Nitrogen 9 mg/dL (7-17); Calcium 8.7 mg/dL (8.4-10.2); Hemolysis Index 1
[2017-11-02] MEDS ORDERED: NORVASC PO SCH (10:00)
[2017-11-02] MEDS: NORMODYNE PO SCH (10:21)
[2017-11-02] MEDS: NORVIR PO SCH (10:21)
[2017-11-02] MEDS: VIREAD PO SCH (10:21)
[2017-11-02] MEDS: PREZISTA PO SCH (10:21)
[2017-11-02] MEDS: PRENATAL VITAMIN PO SCH (10:21)
[2017-11-02] MEDS: LEVAQUIN PO SCH (10:21)
[2017-11-02] MEDS: PEPCID PO SCH (10:21)
[2017-11-02] MEDS: DELTASONE PO SCH (10:22)
[2017-11-02] MEDS: SODIUM CHLORIDE FLUSH SYRINGE 10 ML IV SCH (10:22)
[2017-11-02 10:27] LABS: Band Neutrophils # (Manual) 0.1 K/mm3; Basophils % (Manual) 0 % (0.0-1.8); Myelocytes # (Manual) 0.1 K/mm3; Total Cells Counted 100
[2017-11-02 10:28] LABS: Anisocytosis 2+; Platelet Estimate Consistent w Auto
[2017-11-02 13:20] VITALS: BP 161/90
--- NOTE | 2017-11-02 15:21 | Discharge Summary ---
Providers - Providers Date of Admission: 10/30/17 06:09 Date of discharge: 11/02/17 Attending physician: DAT PHIPPS 10/30/17 06:13 Consult to Physician [CONS] Routine Comment: Dr. Isaac spoke with Dr. Sánchez @ [phone] Consulting Provider: LUDWIN SÁNCHEZ Physician Instructions: Reason For Exam: low plat 10/30/17 10:19 Consult to Physician [CONS] Routine Comment: Consulting Provider: HIMA FERNANDO Physician Instructions: Reason For Exam: menorrhagia Primary care physician: FEEDER ASSOCIATE Hospitalization Condition: Serious Hospital course: Brief History: Patient is 42-year-old with history of ITP, HIV/AIDS presented with heavy bleeding from menstrual cycle for several days. She was evaluated in Emergency department, Hemoglobin was 10.2 , but platelet was low at 21. She f/u with box stapler Dr. Hima Fernando. She was Admitted to medical surgical floor for further management. She was given 3 units of FFP and 1 unit of platelet, restarted her prednisone. Her platelets number improved and stabilized. She was also seen by Obg/gynecology teacher and founder president and ceo and recommended outpt follow up. She was discharged home in stable condition. Discharge diagnosis and management: /ITP with severe thrombocytopenia. Admitted to med/surg Platelet count improved to 105 up from 21 on admission. Transfused Platelet and FFP Prednisone resumed 40mg daily for ITP /Menorrhagia, Subsided, likely worsened due to low platelet OB/Gyne consulted, he evaluated and recommended outpatient follow up with Dr. Hima Fernando /Hypertensive urgency. cont Norvasc and labetalol. Improved /Asthma. Stable. No SOB currently /HIV/AIDS. cont HAART To follow as outpatient /UTI, treated with levaquin DVT prophylaxis. SCDs only because of thrombocytopenia and menorrhagia FULL CODE STATUS Hospitalist Physical Constitutional: Not in acute distress, Obese HEENT: Atraumatic, normocephalic Neck: supple, no lymphadenopathy, Lungs: Clear to auscultation, bilaterally, no wheeze, no crackles CVS: S1-S2 regular, no murmurs, rubs or gallop, Abdomen: soft, non-tender, non distended,bowel sounds are normal, Musculoskeletal: No edema, clubbing, or cyanosis CHEESE SUPERVISOR: awake, alert,oriented x3, no focal neurological signs Disposition: DC-01 TO HOME OR SELFCARE Time spent for discharge: 34 minutes Core Measure Documentation - Palliative Care Palliative Care/ Comfort Measures: Not Applicable - Core Measures Any of the following diagnoses?: none Exam - Constitutional Vitals: Temp Pulse Resp BP Pulse Ox 98.6 F 89 20 161/90 96 11/02/17 12:52 11/02/17 12:52 11/02/17 12:52 11/02/17 12:52 11/02/17 12:52 Plan Activity: advance as tolerated Weight Bearing Status: Weight Bear as Tolerated Diet: low fat, low salt Additional Instructions: f/u with founder president and ceo in one week. repeat CBC in one week Follow up with: PRIMARY CARE, [Primary Care Provider] - 7 Days Prescriptions: amLODIPine [Norvasc] 10 mg PO DAILY #30 tablet guaiFENesin [Mucinex] 600 mg PO BID #14 tab.er.12h Labetalol [Normodyne TAB] 100 mg PO BID #60 tablet Levofloxacin [Levaquin TAB] 500 mg PO Q24HR #3 tablet predniSONE [Deltasone] 40 mg PO QDAY #14 tablet
== END 2017-11-02 18:50 | disposition home or self-care (01) | DRG 813 ==
LOC: ED 21:34 → 3A 10-30 06:09
PROVIDERS: ADMIT Internal Medicine; ATTEND Internal Medicine
PROC: 30233L1 Transfusion of Nonautologous Fresh Plasma into Peripheral Vein, Percutaneous Approach (ICD-10-PCS; principal; 2017-10-30)
PROC: 30233R1 Transfusion of Nonautologous Platelets into Peripheral Vein, Percutaneous Approach (ICD-10-PCS; 2017-10-30)
PROC: 30233K1 Transfusion of Nonautologous Frozen Plasma into Peripheral Vein, Percutaneous Approach (ICD-10-PCS; 2017-10-30)
DX: D69.3 Immune thrombocytopenic purpura (principal); B20 Human immunodeficiency virus [HIV] disease; N39.0 Urinary tract infection, site not specified; N92.4 Excessive bleeding in the premenopausal period; I16.0 Hypertensive urgency; I10 Essential (primary) hypertension; D64.89 Other specified anemias; R10.30 Lower abdominal pain, unspecified; J45.909 Unspecified asthma, uncomplicated; Z90.49 Acquired absence of other specified parts of digestive tract; Z79.899 Other long term (current) drug therapy
CPT/HCPCS: 36415; 36430; 76801; 76817; 80048; 80053; 81001; 83615; 84702; 85007; 85025; 85027; 86850; 86870; 86900; 86901; 87086; J1956; J7040; J7512; P9017; P9035

== ENCOUNTER 2018-09-11 09:03 | Outpatient (CLI) | payer OTHER ==
[2018-09-11] MEDS ORDERED: PROVENTIL IH ONE (10:42)
--- NOTE | 2018-09-12 06:02 | Pulmonary Function Test ---
PULMONARY FUNCTION TEST SPIROMETRY: FVC 2.31 liters, which is 67% of predicted. FEV1 is 1.72 liters, which is 61% of predicted. FEV1/FVC ratio is 74. Flow volume loop: FEF 25-75% is 1.48 liters per second, which is 47% of predicted. MeV is 68% of predicted. Lung volumes: TLC 3.67 liters, which is 74% of predicted. Slow vital capacity 2.30, which is 72% of the predicted and DLCO is 92% of the predicted. IMPRESSION: Mild restrictive ventilatory impairment as evidenced by decrease in total lung capacity. JOB# [id number] GENE/ESTEE
== END 2018-09-11 09:04 | disposition home or self-care (01) ==
LOC: PF 09:03
PROVIDERS: ATTEND Internal Medicine
DX: J45.909 Unspecified asthma, uncomplicated (principal); J20.9 Acute bronchitis, unspecified; I10 Essential (primary) hypertension; Z90.49 Acquired absence of other specified parts of digestive tract
CPT/HCPCS: 94060; 94640; 94727; 94729